=== PATIENT | female | born 1935 | race Caucasian/White ===

== ENCOUNTER 2017-03-03 14:08 | Inpatient (IN) | payer MEDICARE, MEDICAID ==
[~2017-03-03] VITALS: Ht 165.1 cm; Wt 67.1 kg
[2017-03-03 13:00] VITALS: BP 105/59
[~2017-03-03 14:08] MED LIST: ALBU2.5V13 NEB; ALPR0.25 PO; ASPI81TA31 PO; Acetaminophen PO; DULO60CA45 PO; Docusate Sodium PO; GABA600T PO; HYDR-3326 PO; IPRA0.2S6 NEB; LEVO25TA9 PO; MAGN400O4 PO; MONT10TA22 PO; MULT-24 PO; PANT40TA2 PO; ROPI1TAB2 PO
[2017-03-03 14:30] VITALS: BP 123/76
[2017-03-03] MEDS ORDERED: Z GUARD REMEDY PASTE 57 GM TUBE TOP PRN (14:30)
[2017-03-03] MEDS ORDERED: DULO60CA45 PO (15:45)
[2017-03-03] MEDS ORDERED: ALBU2.5V38 NEB (15:45)
[2017-03-03] MEDS ORDERED: MAGN400C PO (15:45)
[2017-03-03] MEDS ORDERED: PRED20TA PO (15:45)
[2017-03-03] MEDS ORDERED: MONT10TA25 PO (15:45)
[2017-03-03] MEDS ORDERED: MULT-1168 PO (15:45)
[2017-03-03] MEDS ORDERED: AZIT250T6 PO (15:45)
[2017-03-03] MEDS ORDERED: ALPR0.255 PO (15:45)
[2017-03-03] MEDS ORDERED: ICOS1CAP PO (15:45)
[2017-03-03] MEDS ORDERED: ESOM40CA PO (15:45)
[2017-03-03] MEDS ORDERED: ASPI-605 PO (15:45)
[2017-03-03] MEDS ORDERED: AMLO5TAB2 PO (15:45)
[2017-03-03] MEDS ORDERED: GABA600T2 PO (15:45)
[2017-03-03] MEDS ORDERED: ENOX40DI SQ (15:45)
[2017-03-03] MEDS ORDERED: ROSU10TA PO (15:46)
[2017-03-03] MEDS ORDERED: ROPI0.5T PO (15:46)
[2017-03-03] MEDS ORDERED: THYR30TA2 PO (15:46)
--- NOTE | 2017-03-03 16:00 | NUR ---
Patient admitted to unit via gurney from ambulance, from [facility]. Report received from EMT personnel, patient in stable condition, no signs of acute distress noted. VS WNL, O2 sat WNL on RA. Belongings verified with patient, no other verbalized needs at this time. Skin clean, dry, and intact, AAOx3, all needs attended to. Safety and fall precautions maintained, call light within reach. Medication reconciliation completed by Isak Fisher NP. Patient reports headache pain 6/10, Tylenol 650mg PO given as per Dr. Pena. Will endorse to older worker specialist.
[2017-03-03] MEDS ORDERED: TIOT4MIS3 IH (16:23)
[2017-03-03] MEDS ORDERED: FLUT1BLS IH (16:23)
[2017-03-03] MEDS ORDERED: OLME20TA15 PO (16:24)
[2017-03-03] MEDS: ACETAMINOPHEN 325 MG TABLET PO PRN (16:53)
[2017-03-03] MEDS ORDERED: Medication Not On Formulary EA (Esomeprazole Mag Trihydrate (Nexium) 40 MG) PO SCH (17:00)
[2017-03-03] MEDS ORDERED: Medication Not On Formulary EA (Icosapent Ethyl (Vascepa) 1 GM) PO SCH (17:00)
[2017-03-03] MEDS ORDERED: ropiniROLE 0.5 MG TABLET PO SCH (17:00)
[2017-03-03] MEDS ORDERED: HOME MED MISCELLANEOUS XX SCH ×2 (17:15→18:00)
[2017-03-03] MEDS: ALPRAZOLAM 0.25 MG TABLET PO SCH (18:15)
[2017-03-03] MEDS: ALBUTEROL SULFATE 2.5 MG/3 ML NEBU NEB SCH (19:59)
[2017-03-03 20:27] VITALS: BP 111/62
[2017-03-03] MEDS: ATORVASTATIN 20 MG TABLET PO SCH (21:00)
[2017-03-03] MEDS ORDERED: AZITHROMYCIN 250 MG TABLET PO SCH (21:15)
[2017-03-03] MEDS: OXYCODONE/APAP 5-325 MG TABLET PO PRN (22:22)
[2017-03-03] MEDS ORDERED: OXYCODONE/APAP 5-325 MG TABLET ONE (22:26)
[2017-03-04] MEDS: ALBUTEROL SULFATE 2.5 MG/3 ML NEBU NEB SCH ×4 (00:03→20:10)
[2017-03-04] MEDS: ALPRAZOLAM 0.25 MG TABLET PO SCH ×4 (00:30→18:01)
[2017-03-04] MEDS ORDERED: ZOLPIDEM 5 MG TABLET ONE (02:51)
[2017-03-04] MEDS: THYROID 60 MG TABLET PO SCH (06:24)
[2017-03-04] MEDS: PANTOPRAZOLE SODIUM 40 MG TABLET.DR PO SCH ×2 (06:24→18:01)
[2017-03-04] MEDS: ACETAMINOPHEN 325 MG TABLET PO PRN ×2 (06:24→20:26)
[2017-03-04] MEDS ORDERED: THYROID PO SCH (07:30)
--- NOTE | 2017-03-04 08:00 | NUR ---
Awake, alert,oriented x 4, on moderate high back rest, not in distress, room air.
[2017-03-04 08:07] VITALS: BP 117/73
[2017-03-04 08:25] LABS: BASOPHILS % (AUTO) 0.1 % (0.0-2.0); EOSINOPHILS % (AUTO) 0.5 % (0.0-7.0); HEMATOCRIT 31.6 % (37-47); HEMOGLOBIN 10.6 G/DL (12.0-16.0); LYMPHOCYTES # (AUTO) 2.3 K/UL (0.8-4.8); LYMPHOCYTES % (AUTO) 25.7 % (20.5-51.5); MEAN CORPUSCULAR HEMOGLOBIN 26.5 UUG (27.0-31.0); MEAN CORPUSCULAR HGB CONC 33 g/dL (32.0-37.0); MEAN CORPUSCULAR VOLUME 79.1 FL (81.0-99.0); MONOCYTES # (AUTO) 0.9 K/UL (0.1-1.30); MONOCYTES % (AUTO) 9.8 % (0.0-11.0); NEUTROPHILS # (AUTO) 5.7 K/UL (1.8-8.9); NEUTROPHILS % (AUTO) 63.9 % (38.5-71.5); PLATELET COUNT (AUTO) 198 K/UL (150-450); RED BLOOD CELL COUNT(AUTO) 3.99 MIL/UL (4.2-5.4); WHITE BLOOD COUNT (AUTO) 8.9 K/UL (4.0-11.2)
[2017-03-04 08:32] LABS: CARBON DIOXIDE 27 mmol/L (21-32); CHLORIDE 106 mmol/L (98-107); CHOLESTEROL 130 mg/dL (<200); CREATININE 0.9 mg/dL (0.6-1.3); GLUCOSE 73 mg/dL (74-106); HDL CHOLESTEROL 44 mg/dL (40-60); MAGNESIUM 1.8 mg/dL (1.8-2.4); PHOSPHOROUS 3.9 mg/dL (2.5-4.9); POTASSIUM 3.9 mmol/L (3.5-5.1); TRIGLYCERIDES 145 MG/DL (30-150); UREA NITROGEN, BLOOD 35 mg/dL (7-18)
[2017-03-04] MEDS ORDERED: Medication Not On Formulary EA (Rosuvastatin Calcium (Crestor) 10 MG) PO SCH (09:00)
[2017-03-04] MEDS ORDERED: PATIENT MAY USE OWN MED- MD OK PO SCH (09:00)
[2017-03-04] MEDS: PATIENT MAY USE OWN MED- MD OK IH SCH ×2 (09:00→09:05)
[2017-03-04] MEDS ORDERED: ENOXAPARIN SODIUM 40 MG/0.4 ML DISP.SYRIN SQ SCH (09:00)
[2017-03-04] MEDS ORDERED: Medication Not On Formulary EA (Olmesartan Medoxomil (Benicar) 20 MG) PO SCH (09:00)
[2017-03-04] MEDS ORDERED: Medication Not On Formulary EA (Mu-Vits-Min Th/Lycopene/Lutein (Centrum Silver Tablet) 1 PO SCH (09:00)
--- NOTE | 2017-03-04 09:00 | NUR ---
PT cindy initiated, request for smoking
[2017-03-04] MEDS: DULOXETINE 60 MG CAPSULE.DR PO SCH (09:05)
[2017-03-04] MEDS: ASPIRIN EC 81 MG TABLET.DR PO SCH (09:05)
[2017-03-04] MEDS: GABAPENTIN 400 MG CAPSULE PO SCH ×3 (09:06→18:01)
[2017-03-04] MEDS: AMLODIPINE 5 MG TABLET PO SCH (09:07)
[2017-03-04] MEDS: predniSONE 20 MG TABLET PO SCH (09:07)
[2017-03-04] MEDS: MAGNESIUM OXIDE 400 MG TABLET PO SCH (09:07)
[2017-03-04] MEDS: MONTELUKAST SODIUM 10 MG TABLET PO SCH (09:08)
[2017-03-04] MEDS: ropiniROLE 1 MG TABLET PO SCH ×2 (09:08→18:01)
[2017-03-04] MEDS: AZITHROMYCIN 250 MG TABLET PO SCH (09:09)
[2017-03-04] MEDS: MULTIVIT, IRON, MIN NO. 8, FA TABLET PO SCH (09:09)
[2017-03-04] MEDS: ENOXAPARIN SODIUM 30 MG/0.3 ML DISP.SYRIN SUBCUT SCH (09:12)
--- NOTE | 2017-03-04 14:11 | NUR ---
Hvac Instructor: SW met with patient at bedside to assess support and provide needs. Pt was admitted for COPD appeared lethargic upon intiial assessment. Pt was unresponsive to questions and appeared to be sleeping. SW attempted to call daughter, Kai [phone] however no answer at this time. SW will continue to follow-up with patient and family to assess needs and provide support.
--- NOTE | 2017-03-04 18:31 | NUR ---
Incontinence care done. Repositioned in bed comfortably
--- NOTE | 2017-03-04 19:45 | NUR ---
patient received resting comfortably in bed, no acute distress noted. Pt requesting respiratory treatment prn, RT notified. Denies any other physical discomfort. Able to make needs known. Bed in low and locked position, call light within reach.
[2017-03-04] MEDS: BENICAR 20 MG PO SCH (20:26)
[2017-03-04 20:47] VITALS: BP 102/55
[2017-03-04] MEDS: ATORVASTATIN 20 MG TABLET PO SCH (21:00)
--- NOTE | 2017-03-04 21:00 | NUR ---
Patient compliant with po medications, except refusing lipitor states "I don't need it", will notify MD. Pt does c/o pain to both arms, given tylenol prn. no acute distress noted. Will monitor for safety.
[2017-03-05] MEDS: ZOLPIDEM 5 MG TABLET PO PRN ×2 (00:06→23:10)
[2017-03-05] MEDS: ALBUTEROL SULFATE 2.5 MG/3 ML NEBU NEB SCH ×4 (00:09→18:49)
[2017-03-05] MEDS: ALPRAZOLAM 0.25 MG TABLET PO SCH ×4 (00:21→17:40)
--- NOTE | 2017-03-05 05:29 | NUR ---
PATIENT SLEPT MOST OF THE NIGHT, NO SOB NO CHEST PAIN, OXYGEN SAT WITHIN THE NORMAL RANGE, CALL LIGHT WITHIN REACH. OXYGEN SAT WNL.
[2017-03-05] MEDS: PANTOPRAZOLE SODIUM 40 MG TABLET.DR PO SCH ×2 (06:20→17:40)
[2017-03-05] MEDS: THYROID 60 MG TABLET PO SCH (06:21)
--- NOTE | 2017-03-05 08:00 | NUR ---
Awake, alert, oriented x 4, on moderate high back rest. Repositioned, breakfast served
[2017-03-05 08:31] VITALS: BP 107/62
[2017-03-05] MEDS: PATIENT MAY USE OWN MED- MD OK IH SCH ×2 (09:00→09:10)
[2017-03-05] MEDS: MAGNESIUM OXIDE 400 MG TABLET PO SCH (09:10)
[2017-03-05] MEDS: DULOXETINE 60 MG CAPSULE.DR PO SCH (09:10)
[2017-03-05] MEDS: GABAPENTIN 400 MG CAPSULE PO SCH ×3 (09:10→17:39)
[2017-03-05] MEDS: ASPIRIN EC 81 MG TABLET.DR PO SCH (09:10)
[2017-03-05] MEDS: predniSONE 20 MG TABLET PO SCH (09:11)
[2017-03-05] MEDS: AMLODIPINE 5 MG TABLET PO SCH (09:11)
[2017-03-05] MEDS: ropiniROLE 1 MG TABLET PO SCH ×2 (09:12→17:40)
[2017-03-05] MEDS: AZITHROMYCIN 250 MG TABLET PO SCH (09:12)
[2017-03-05] MEDS: MULTIVIT, IRON, MIN NO. 8, FA TABLET PO SCH (09:12)
[2017-03-05] MEDS: MONTELUKAST SODIUM 10 MG TABLET PO SCH (09:12)
[2017-03-05] MEDS: ENOXAPARIN SODIUM 30 MG/0.3 ML DISP.SYRIN SUBCUT SCH (09:13)
[2017-03-05] MEDS: ACETAMINOPHEN 325 MG TABLET PO PRN (12:29)
--- NOTE | 2017-03-05 14:48 | NUR ---
Woke up after a nap. Requested for a shower.
[2017-03-05 18:03] VITALS: BP 116/66
--- NOTE | 2017-03-05 18:11 | NUR ---
Refused Xanax due, verbalized feeling relaxed.
--- NOTE | 2017-03-05 19:30 | NUR ---
PT ALERT AND ORIENTED IN BED. NO DISTRESS NOTED. HOB ELEVATED. COMPLIANT WITH NURSING CARE. ALL NEEDS MET. SAFETY MAINTAINED. CALL LIGHT WITHIN REACH.
[2017-03-05 20:37] VITALS: BP_SYST 111; BP_SYST 95; BP_DIAS 57
[2017-03-05] MEDS: ATORVASTATIN 20 MG TABLET PO SCH (21:00)
[2017-03-05] MEDS: BENICAR 20 MG PO SCH (21:18)
[2017-03-06] MEDS: ALPRAZOLAM 0.25 MG TABLET PO SCH ×2 (00:46→06:12)
[2017-03-06] MEDS: ALBUTEROL SULFATE 2.5 MG/3 ML NEBU NEB SCH ×4 (01:51→19:06)
[2017-03-06] MEDS: THYROID 60 MG TABLET PO SCH (06:11)
[2017-03-06] MEDS: ACETAMINOPHEN 325 MG TABLET PO PRN ×2 (06:12→23:45)
[2017-03-06] MEDS: PANTOPRAZOLE SODIUM 40 MG TABLET.DR PO SCH ×2 (06:12→17:01)
--- NOTE | 2017-03-06 07:01 | NUR ---
PT RESTING IN BED. NO DISTRESS NOTED. TYLENOL GIVEN FOR MILD HEADACHE, COMPLIANT WITH NURSING CARE. CLEAN AND DRY. SAFETY MAINTAINED. CALL LIGHT WITHIN REACH.
[2017-03-06 08:00] VITALS: BP 110/57
[2017-03-06] MEDS: PATIENT MAY USE OWN MED- MD OK IH SCH ×2 (08:58→20:40)
[2017-03-06] MEDS: ropiniROLE 1 MG TABLET PO SCH ×2 (08:59→17:01)
[2017-03-06] MEDS: DULOXETINE 60 MG CAPSULE.DR PO SCH (08:59)
[2017-03-06] MEDS: MONTELUKAST SODIUM 10 MG TABLET PO SCH (08:59)
[2017-03-06] MEDS: GABAPENTIN 400 MG CAPSULE PO SCH ×3 (09:00→17:01)
[2017-03-06] MEDS: AZITHROMYCIN 250 MG TABLET PO SCH (09:00)
[2017-03-06] MEDS: MULTIVIT, IRON, MIN NO. 8, FA TABLET PO SCH (09:00)
[2017-03-06] MEDS: MAGNESIUM OXIDE 400 MG TABLET PO SCH (09:00)
[2017-03-06] MEDS: AMLODIPINE 5 MG TABLET PO SCH (09:00)
[2017-03-06] MEDS: ASPIRIN EC 81 MG TABLET.DR PO SCH (09:00)
[2017-03-06] MEDS: predniSONE 20 MG TABLET PO SCH (09:00)
--- NOTE | 2017-03-06 09:00 | NUR ---
PATIENT AWAKE RESTING IN BED. NO S/S OF DISTRESS. NO COMPLAINTS OF DISCOMFORT OR PAIN NOTED. MEDICATIONS TOLERATED WELL. PATIENT REQUESTED TO GO OUT AND SMOKE. INFORMED PATIENT THAT SHE IS BALE TO DO SO ONLY 3X/DAY. OT ACCOMPANIED BY PATIENT OUTSIDE, ENSURED SAFETY.
[2017-03-06] MEDS: ENOXAPARIN SODIUM 30 MG/0.3 ML DISP.SYRIN SUBCUT SCH (09:01)
[2017-03-06] MEDS ORDERED: BISACODYL 5 MG TABLET.DR PO ONE (12:00)
[2017-03-06] MEDS: ALPRAZOLAM 0.25 MG TABLET PO PRN ×2 (12:32→18:15)
--- NOTE | 2017-03-06 16:45 | NUR ---
PATIENT WENT TO SMOKE FOR 3RD TIME. INFORMED PATIENT THAT THIS WILL BE LAST FOR THE DAY. NO COMPLAINTS OF DISCOMFORT OR PAIN AT THIS TIME. TOLERATED THERAPY. ENSURED SAFETY. ATTENDED TO NEEDS PROMPTLY.
--- NOTE | 2017-03-06 19:30 | NUR ---
Received patient resting in bed with no s/s of distress. No compliants of pain at this time. Call light within reach. Will continue to monitor.
[2017-03-06 20:00] VITALS: BP 94/52
[2017-03-06] MEDS: SENNOSIDES 1 TABLET PO SCH (20:34)
[2017-03-06] MEDS: ATORVASTATIN 20 MG TABLET PO SCH (20:34)
[2017-03-06] MEDS: BENICAR 20 MG PO SCH (20:35)
[2017-03-06] MEDS: ZOLPIDEM 5 MG TABLET PO PRN (23:44)
[2017-03-07] MEDS: ALBUTEROL SULFATE 2.5 MG/3 ML NEBU NEB SCH ×4 (00:33→20:10)
[2017-03-07] MEDS: OXYCODONE/APAP 5-325 MG TABLET PO PRN (02:10)
[2017-03-07] MEDS: ALPRAZOLAM 0.25 MG TABLET PO PRN ×3 (02:19→18:40)
[2017-03-07] MEDS: PANTOPRAZOLE SODIUM 40 MG TABLET.DR PO SCH ×2 (06:11→17:11)
[2017-03-07] MEDS: THYROID 60 MG TABLET PO SCH (06:11)
--- NOTE | 2017-03-07 06:41 | NUR ---
Patient went back to sleep after taking morning meds. Respirations even and unlabored. Reported headache to be relieved by pain meds. Ambien and Xanax given per patient's request. VS monitored. Frequent checks done. Call light kept within reach. Needs attended. Endorsed accordingly.
--- NOTE | 2017-03-07 06:45 | NUR ---
Snacks served during the shift as requested by patient. Verbalized satisfaction.
--- NOTE | 2017-03-07 07:30 | NUR ---
Received pt in bed A/O X4, no acute distress noted. Call light within reach.
[2017-03-07 08:00] VITALS: BP 96/48
--- NOTE | 2017-03-07 08:45 | NUR ---
pt with therapy at this time
--- NOTE | 2017-03-07 08:51 | NUR ---
PATIENT HAVING THERAPY AT THE MOMENT. WILL GIVE MEDS AFTER THERAPY. TOLERATED BREAKFAST WELL. NO COMPLAINTS OF PAIN OR DISCOMFORT AT THIS TIME. NO S/S OF DISTRESS.
[2017-03-07] MEDS: AMLODIPINE 5 MG TABLET PO SCH (09:00)
[2017-03-07] MEDS: MONTELUKAST SODIUM 10 MG TABLET PO SCH (10:03)
[2017-03-07] MEDS: MULTIVIT, IRON, MIN NO. 8, FA TABLET PO SCH (10:03)
[2017-03-07] MEDS: DULOXETINE 60 MG CAPSULE.DR PO SCH (10:03)
[2017-03-07] MEDS: ropiniROLE 1 MG TABLET PO SCH ×2 (10:03→17:11)
[2017-03-07] MEDS: GABAPENTIN 400 MG CAPSULE PO SCH ×3 (10:04→17:11)
[2017-03-07] MEDS: ASPIRIN EC 81 MG TABLET.DR PO SCH (10:04)
[2017-03-07] MEDS: MAGNESIUM OXIDE 400 MG TABLET PO SCH (10:04)
[2017-03-07] MEDS: predniSONE 20 MG TABLET PO SCH (10:04)
[2017-03-07] MEDS: PATIENT MAY USE OWN MED- MD OK IH SCH ×2 (10:05→21:47)
[2017-03-07] MEDS: ENOXAPARIN SODIUM 30 MG/0.3 ML DISP.SYRIN SUBCUT SCH (10:19)
--- NOTE | 2017-03-07 11:16 | NUR ---
BP OF 90/47. IL-81. PATIENT VERBALIZED THAT SHE WAS TIRED FROM THERAPY. INFORMED PIETROER/ OPERATIONS ADMINISTRATIVE ASSISTANT AND SAID WILL CHECK WITH SOME LABS. NO NEW ORDERS AT THIS TIME.
[2017-03-07] MEDS: ACETAMINOPHEN 325 MG TABLET PO PRN (11:33)
--- NOTE | 2017-03-07 11:33 | NUR ---
Pain Pt c/o of headache pain scale 7/10, pt requesting tylenol 650mg PO. Med given as order, Will con't to monitor.
--- NOTE | 2017-03-07 12:36 | NUR ---
Anxiety Pt c/o of feeling anxious. Xanax 0.25 mg PO given as requested. B/P checked reading of 125/62 HR 83. Will monitor effectiveness.
--- NOTE | 2017-03-07 18:41 | NUR ---
Pt remains in bed, alert/oriented pt c/o of anxiety Xanax 0.25mg PO given as requested. No distress noted. Pt taken out to smoke 3x today. smoking cessation instructions provided.
--- NOTE | 2017-03-07 19:30 | NUR ---
Received patient resting in bed with no s/s of distress. No complaints of pain at this time. Asked to be taken out to smoke. Reminded that she had already done so four times during the day. Offered some snacks. Encouraged to watch TV for recreation. Call light within reach. Will continue to monitor.
[2017-03-07] MEDS: ATORVASTATIN 20 MG TABLET PO SCH ×2 (21:00→21:47)
[2017-03-07 21:33] VITALS: BP 111/52
[2017-03-07 21:36] VITALS: BP 145/106
[2017-03-07] MEDS: SENNOSIDES 1 TABLET PO SCH (21:47)
[2017-03-07] MEDS: BENICAR 20 MG PO SCH (21:49)
[2017-03-07] MEDS: ZOLPIDEM 5 MG TABLET PO PRN (22:51)
[2017-03-08] MEDS: ALPRAZOLAM 0.25 MG TABLET PO PRN ×3 (00:11→13:28)
[2017-03-08] MEDS: ALBUTEROL SULFATE 2.5 MG/3 ML NEBU NEB SCH ×4 (00:58→19:41)
[2017-03-08] MEDS: OXYCODONE/APAP 5-325 MG TABLET PO PRN (03:36)
[2017-03-08] MEDS: PANTOPRAZOLE SODIUM 40 MG TABLET.DR PO SCH ×2 (06:06→17:18)
[2017-03-08] MEDS: THYROID 60 MG TABLET PO SCH (06:07)
--- NOTE | 2017-03-08 07:35 | NUR ---
Patient sleeping after taking AM meds. No s/s of distress. Due meds and PRN meds given. Refused HS dose of Lipitor. Verbalized some relief of pain. Comfort measures done. Frequent checks done. Call light kept within reach. Endorsed accordingly.
[2017-03-08 08:00] VITALS: BP 101/52
[2017-03-08] MEDS: GABAPENTIN 400 MG CAPSULE PO SCH ×3 (08:50→17:18)
[2017-03-08] MEDS: ropiniROLE 1 MG TABLET PO SCH ×2 (08:50→17:18)
[2017-03-08] MEDS: MULTIVIT, IRON, MIN NO. 8, FA TABLET PO SCH (08:50)
[2017-03-08] MEDS: ASPIRIN EC 81 MG TABLET.DR PO SCH (08:50)
[2017-03-08] MEDS: DULOXETINE 60 MG CAPSULE.DR PO SCH (08:51)
[2017-03-08] MEDS: predniSONE 20 MG TABLET PO SCH (08:51)
[2017-03-08] MEDS: MAGNESIUM OXIDE 400 MG TABLET PO SCH (08:51)
[2017-03-08] MEDS: ENOXAPARIN SODIUM 30 MG/0.3 ML DISP.SYRIN SUBCUT SCH (08:56)
[2017-03-08] MEDS: PATIENT MAY USE OWN MED- MD OK IH SCH ×2 (08:58→21:31)
[2017-03-08] MEDS: AMLODIPINE 5 MG TABLET PO SCH (09:00)
[2017-03-08] MEDS ORDERED: ONDANSETRON HCL 4 MG TABLET PO PRN (10:45)
[2017-03-08 11:42] LABS: BASOPHILS # (AUTO) 0.3 K/uL (0.0-8.0); BASOPHILS % (AUTO) 1.7 % (0.0-2.0); EOSINOPHILS # (AUTO) 0.2 K/uL (0.0-0.7); EOSINOPHILS % (AUTO) 1.1 % (0.0-7.0); HEMATOCRIT 35.7 % (37-47); LYMPHOCYTES # (AUTO) 2.6 K/UL (0.8-4.8); MEAN CORPUSCULAR HGB CONC 34 g/dL (32.0-37.0); MEAN CORPUSCULAR VOLUME 80.5 FL (81.0-99.0); MONOCYTES % (AUTO) 13.5 % (0.0-11.0); NEUTROPHILS % (AUTO) 66.7 % (38.5-71.5); PLATELET COUNT (AUTO) 240 K/UL (150-450); RED BLOOD CELL COUNT(AUTO) 4.43 MIL/UL (4.2-5.4); WHITE BLOOD COUNT (AUTO) 15.1 K/UL (4.0-11.2)
[2017-03-08 11:57] LABS: CARBON DIOXIDE 28 mmol/L (21-32); CHLORIDE 104 mmol/L (98-107); CREATININE 0.9 mg/dL (0.6-1.3); GLUCOSE 90 mg/dL (74-106); UREA NITROGEN, BLOOD 27 mg/dL (7-18)
[2017-03-08 12:03] LABS: ALANINE AMINOTRANSFERASE 42 U/L (14-59); ALKALINE PHOSPHATASE 56 U/L (50-136); ASPARTATE AMINOTRANSFERASE 15 U/L (15-37); BILIRUBIN,TOTAL 0.4 mg/dL (0.2-1.0); MAGNESIUM 1.9 mg/dL (1.8-2.4); TOTAL PROTEIN, SERUM 7.3 g/dL (6.4-8.2)
--- NOTE | 2017-03-08 18:23 | NUR ---
senior quality control inspector gave orders such as ekg and cbc. no pertinent results noted. continued to monitor pt for complications after episode of vomiting. vital signs remained stable. pt participated in adl such as bathing and grooming. pt continued to ask for xanax and cigarette session. pt notified of the risks of smoking. pt refused. pt was given smoking cession. no signs of acute distress after vomiting. ishan continue to provide comfort measures and medication regimen.
--- NOTE | 2017-03-08 19:30 | NUR ---
RECEIVED PATIENT AWAKE, ALERT AND ORIENTED X4 WITH ANXIETY ISSUES AROUND NEED TO SMOKE. SMOKING CESSATION INFO GIVEN TO PATIENT.DR HALE HERE TO EVALUATE PATIENT. ORDERS RECEIVED. CALL LIGHT WITHIN REACH AAT. BED ALARM ON. INSTRUCTED PATIENT NOT TO GET OOB WITHOUT FIRST CALLING NURSE. PATIENT VERBALIZES UNDERSTANDING.
[2017-03-08] MEDS: FEXOFENADINE HCL 60 MG TABLET PO SCH (19:45)
[2017-03-08] MEDS ORDERED: CLONAZEPAM 0.5 MG TABLET PO PRN (19:45)
[2017-03-08] MEDS: MONTELUKAST SODIUM 10 MG TABLET PO SCH (20:40)
[2017-03-08] MEDS: ATORVASTATIN 20 MG TABLET PO SCH (20:40)
[2017-03-08] MEDS: BENICAR 20 MG PO SCH (20:42)
[2017-03-08] MEDS: SENNOSIDES 1 TABLET PO SCH (20:44)
[2017-03-08 22:15] VITALS: BP 95/43
[2017-03-09] VITALS (10 sets, daily range): BP systolic 81–114; BP diastolic 41–69
[2017-03-09] MEDS: ALBUTEROL SULFATE 2.5 MG/3 ML NEBU NEB SCH ×4 (01:30→20:05)
--- NOTE | 2017-03-09 01:30 | NUR ---
PATIENT CALLED NURSE TO SAY SHE DIDN'T FEEL GOOD. HYPOTENSIVE WITH HR WNL. SKIN WARM AND DRY. AWAKE, ALERT AND ORIENTED X4. SPEECH CLEAR. SYMMETRICAL EXTREMITIES AND NO FACIAL DROOP OBSERVED. PLACED PATIENT WITH HOB FLAT AND WITH ELEVATION OF LEGS ON [address] SHAH PAGED AND NOTIFIED OF HYPOTENSION, NEW ORDER OF CLONAZEPAM LAST NIGHT AND THAT HS BENICAR WAS GIVEN. ORDERS RECEIVED. CALL LIGHT WITHIN REACH AAT
[2017-03-09] MEDS ORDERED: IV NS 1000 ML 1,000 ML IV ONE ×2 (01:45→03:00)
--- NOTE | 2017-03-09 02:00 | NUR ---
NEW IV STARTED IN RIGHT WRIST WITH 22 G NEEDLE. 2 LITER NORMAL SALINE BOLUS INITIATED ORDERED. O2 SATS KEPT BETWEEN 88-92% ON 1 LPM/NASAL CANNULA.NO RESPIRATORY DISTRESS NOTED. RECEIVED HHN TREATMENT AT 0130 BY RT WITHOUT INCIDENT.
--- NOTE | 2017-03-09 03:30 | NUR ---
FEELING BETTER AT THIS TIME. RESTING COMFORTABLY WITHOUT C/O DIZZINESS, PAIN, OR ANXIETY.NO RESPIRATORY DISTRESS NOTED. SATS ARE 93 % ON O2 AT 1 LPM/NASAL CANNULA. BPS IMPROVED TO 90/49 WITH HR OF 70/MIN. SLEEPING INTERMITTENTLY ON AND OFF. APPEARS IN NAD.
--- NOTE | 2017-03-09 04:20 | NUR ---
2 LITER NORMAL SALINE BOLUS COMPLETED WITHOUT INCIDENT. VITALS IMPROVED AT THIS TIME. BPS 114. PATIENT FEELING BETTER. LUNGS ARE CLEAR BY AUSCULTATION BILATERALLY. SATS MAINTAINED OVER 92% ON 1 LPM/NASAL CANNULA. WITHOUT RESPIRATORY DISTRESS NOTED AT THIS TIME. HOB ELEVATED TO 40 DEGREES FOR PATIENT COMFORT. TAKING HOT TEA WITHOUT PROBLEMS. IV SITE CONVERTED TO SALINE LOCK S/P BOLUS INFUSION
--- NOTE | 2017-03-09 05:30 | NUR ---
PATIENT CALLED TO C/O DIZZINESS. VITALS ARE STABLE AT THIS TIME. BPS IS 108. ENC TO DRINK TEA FOR NOW.
[2017-03-09] MEDS: ACETAMINOPHEN 325 MG TABLET PO PRN ×2 (05:58→10:34)
--- NOTE | 2017-03-09 06:00 | NUR ---
COMFORTABLE AT THIS TIME EXCEPT WITH C/O SOME DIZZINESS AND SLIGHT HEADACHE.TYLENOL GIVEN FOR RELIEF.SALINE LOCK FLUSHED WITH NORMAL SALINE TO MAINTAIN PATENCY. APPEARS IN NAD. CALL LIGHT WITHIN REACH
[2017-03-09] MEDS: PANTOPRAZOLE SODIUM 40 MG TABLET.DR PO SCH ×2 (06:01→17:49)
[2017-03-09] MEDS: THYROID 60 MG TABLET PO SCH (06:01)
--- NOTE | 2017-03-09 08:30 | NUR ---
pt refused Norvasc. pt states that her blood pressure is too low. told pt about risks of not medicating. pt refused will continue to monitor for distress.
[2017-03-09] MEDS: FEXOFENADINE HCL 60 MG TABLET PO SCH (09:00)
[2017-03-09] MEDS: AMLODIPINE 5 MG TABLET PO SCH (09:00)
[2017-03-09] MEDS: DULOXETINE 60 MG CAPSULE.DR PO SCH (09:22)
[2017-03-09] MEDS: ropiniROLE 1 MG TABLET PO SCH ×2 (09:22→17:49)
[2017-03-09] MEDS: predniSONE 20 MG TABLET PO SCH (09:23)
[2017-03-09] MEDS: ASPIRIN EC 81 MG TABLET.DR PO SCH (09:23)
[2017-03-09] MEDS: GABAPENTIN 400 MG CAPSULE PO SCH ×3 (09:23→17:49)
[2017-03-09] MEDS: MULTIVIT, IRON, MIN NO. 8, FA TABLET PO SCH (09:23)
[2017-03-09] MEDS: MAGNESIUM OXIDE 400 MG TABLET PO SCH (09:24)
[2017-03-09] MEDS: ENOXAPARIN SODIUM 30 MG/0.3 ML DISP.SYRIN SUBCUT SCH (09:25)
[2017-03-09] MEDS: PATIENT MAY USE OWN MED- MD OK IH SCH ×2 (09:37→21:11)
--- NOTE | 2017-03-09 13:10 | NUR ---
pt complaints that she wants her xanax but Dr. Melissa discontinued the med and replaced it with Klonopin. Md also allowed pt to smoke three times a day. pt notified of the risks of smoking. pt still refused smoking cessation. ordered nicotine patch. pt refused and wanted xanax. will contact . for clarification.
--- NOTE | 2017-03-09 13:17 | NUR ---
dr hooper contacted. Dr. Hooper instructed to talk to angelica if he feels strongly about discontinuing xanax and smoking.
--- NOTE | 2017-03-09 14:36 | NUR ---
dr dominguez approved of continuing xanax as prescribed.
[2017-03-09] MEDS: ALPRAZOLAM 0.25 MG TABLET PO PRN (16:46)
--- NOTE | 2017-03-09 16:57 | NUR ---
IDT MEETING 03/09/17
[2017-03-09] MEDS ORDERED: ATORVASTATIN 20 MG TABLET PO SCH (21:00)
[2017-03-09] MEDS: ATORVASTATIN 10 MG TABLET PO SCH (21:09)
[2017-03-09] MEDS: MONTELUKAST SODIUM 10 MG TABLET PO SCH (21:09)
[2017-03-09] MEDS: BENICAR 20 MG PO SCH (21:10)
[2017-03-09] MEDS: SENNOSIDES 1 TABLET PO SCH (21:10)
[2017-03-09] MEDS: ZOLPIDEM 5 MG TABLET PO PRN (23:58)
[2017-03-10] MEDS: ALBUTEROL SULFATE 2.5 MG/3 ML NEBU NEB SCH ×4 (01:44→18:58)
[2017-03-10] MEDS: ALPRAZOLAM 0.25 MG TABLET PO PRN ×4 (01:50→23:02)
[2017-03-10] MEDS: THYROID 60 MG TABLET PO SCH (06:46)
[2017-03-10] MEDS: PANTOPRAZOLE SODIUM 40 MG TABLET.DR PO SCH ×2 (06:46→16:47)
--- NOTE | 2017-03-10 06:50 | NUR ---
Patient alert and oriented and verbally able to let needs known. Slept intermittently throughout the night. Showed no signs of pain or discomfort. Maintained clean and dry throughout the night. Call light within reach, all needs attended to.
[2017-03-10] MEDS: predniSONE 10 MG TABLET PO SCH (08:20)
[2017-03-10] MEDS: PATIENT MAY USE OWN MED- MD OK IH SCH ×2 (08:20→20:53)
[2017-03-10] MEDS: GABAPENTIN 400 MG CAPSULE PO SCH ×3 (08:21→18:07)
[2017-03-10] MEDS: DULOXETINE 60 MG CAPSULE.DR PO SCH (08:21)
[2017-03-10] MEDS: ropiniROLE 1 MG TABLET PO SCH ×2 (08:21→16:48)
[2017-03-10] MEDS: MAGNESIUM OXIDE 400 MG TABLET PO SCH (08:22)
[2017-03-10] MEDS: ASPIRIN EC 81 MG TABLET.DR PO SCH (08:22)
[2017-03-10 08:23] VITALS: BP 129/58
[2017-03-10] MEDS: ENOXAPARIN SODIUM 30 MG/0.3 ML DISP.SYRIN SUBCUT SCH (08:23)
[2017-03-10] MEDS: NICOTINE 14 MG/24HR PATCH TD SCH (08:25)
[2017-03-10] MEDS: MULTIVIT, IRON, MIN NO. 8, FA TABLET PO SCH (08:26)
[2017-03-10] MEDS: FEXOFENADINE HCL 60 MG TABLET PO SCH (08:37)
--- NOTE | 2017-03-10 08:45 | NUR ---
RECEIVED PATIENT AWAKE IN BED, EATING BREAKFAST. ALERT AND ORIENTED X4. NO S/S OF DISTRESS NO COMPLAINTS OF PAIN AT THIS TIME. ASKED TO HAVE A CIGARETTE. ACCOMPANIED BY GLASS FURNACE TENDER OUTSIDE.
[2017-03-10] MEDS ORDERED: predniSONE 20 MG TABLET PO SCH (09:00)
[2017-03-10 11:16] LABS: *BILIRUBIN,URIN NEGATIVE (NEGATIVE); *BLOOD, URINE NEGATIVE (NEGATIVE); *CLARITY,URINE SLIGHTLY CLOUDY (CLEAR); *COLOR,URINE YELLOW (YELLOW); *KETONES,URINE NEGATIVE (NEGATIVE); *PROTEIN,URINE NEGATIVE (NEGATIVE); *UROBILINOGEN,URINE 0.2 E.U./dl (NORMAL); LEUKOCYTE ESTERASE ,URINE 1+ (NEGATIVE); NITRITE, URINE NEGATIVE (NEGATIVE); UGLUCOSE NEGATIVE (NEGATIVE)
[2017-03-10 11:32] LABS: BACTERIA,URINE MANY /HPF (NONE SEEN); RBC,URINE 0-3 /HPF (0-3); SQUAMOUS EPITHELIAL CELL,UR FEW /HPF (NONE SEEN); WBC,URINE 20-50 /HPF (0-3)
--- NOTE | 2017-03-10 12:00 | NUR ---
URINALYSIS DONE SENT TO LAB.
--- NOTE | 2017-03-10 13:00 | NUR ---
INFORMED DR. TORRES OF URINALYSIS RESULT. ORDERED BACTRIM DS ONE TABLET BID. ENCOURAGED PATIENT TO INCREASE FLUID INTAKE AND TAKE CRANBERRY JUICE.
[2017-03-10] MEDS: SULFAMETH/TRIMETH 800/160 MG TABLET PO SCH ×2 (16:48→20:51)
[2017-03-10] MEDS ORDERED: BISACODYL 5 MG TABLET.DR PO PRN (19:30)
[2017-03-10] MEDS: SENNOSIDES 1 TABLET PO SCH (20:52)
[2017-03-10] MEDS: ATORVASTATIN 10 MG TABLET PO SCH (20:52)
[2017-03-10] MEDS: MONTELUKAST SODIUM 10 MG TABLET PO SCH (20:52)
[2017-03-10] MEDS: BENICAR 20 MG PO SCH (20:57)
[2017-03-10 21:44] VITALS: BP 95/53
[2017-03-11] MEDS: ALBUTEROL SULFATE 2.5 MG/3 ML NEBU NEB SCH ×4 (01:30→20:05)
--- NOTE | 2017-03-11 01:54 | NUR ---
Pt asleep. No sob noted. HHN tx not given. Charge nurse aware.
[2017-03-11] MEDS: ALPRAZOLAM 0.25 MG TABLET PO PRN ×3 (06:00→18:23)
[2017-03-11] MEDS: PANTOPRAZOLE SODIUM 40 MG TABLET.DR PO SCH ×2 (06:00→17:00)
[2017-03-11] MEDS: THYROID 60 MG TABLET PO SCH (06:00)
--- NOTE | 2017-03-11 06:03 | NUR ---
Patient slept intermittently throughout the night, showed no signs and symptoms of pain or discomfort, no signs of respiratory distress. Maintained clean and dry, call light within reach, all needs attended.
[2017-03-11 07:41] LABS: BASOPHILS % (AUTO) 0.1 % (0.0-2.0); EOSINOPHILS # (AUTO) 0.2 K/uL (0.0-0.7); EOSINOPHILS % (AUTO) 1.6 % (0.0-7.0); HEMATOCRIT 32.3 % (37-47); HEMOGLOBIN 10.8 G/DL (12.0-16.0); LYMPHOCYTES # (AUTO) 2.2 K/UL (0.8-4.8); MEAN CORPUSCULAR HEMOGLOBIN 26.8 UUG (27.0-31.0); MEAN CORPUSCULAR HGB CONC 34 g/dL (32.0-37.0); MEAN CORPUSCULAR VOLUME 79.9 FL (81.0-99.0); MONOCYTES # (AUTO) 0.8 K/UL (0.1-1.30); MONOCYTES % (AUTO) 7.4 % (0.0-11.0); NEUTROPHILS # (AUTO) 7.3 K/UL (1.8-8.9); NEUTROPHILS % (AUTO) 69.9 % (38.5-71.5); PLATELET COUNT (AUTO) 240 K/UL (150-450); RED BLOOD CELL COUNT(AUTO) 4.04 MIL/UL (4.2-5.4)
[2017-03-11 07:44] LABS: WHITE BLOOD COUNT (AUTO) 10.5 K/UL (4.0-11.2)
[2017-03-11 08:05] LABS: CARBON DIOXIDE 26 mmol/L (21-32); CHLORIDE 105 mmol/L (98-107); GLUCOSE 79 mg/dL (74-106); MAGNESIUM 1.9 mg/dL (1.8-2.4); PHOSPHOROUS 3.9 mg/dL (2.5-4.9); POTASSIUM 4.2 mmol/L (3.5-5.1); UREA NITROGEN, BLOOD 17 mg/dL (7-18)
[2017-03-11] MEDS: FEXOFENADINE HCL 60 MG TABLET PO SCH (08:59)
[2017-03-11] MEDS: ASPIRIN EC 81 MG TABLET.DR PO SCH (09:00)
[2017-03-11] MEDS: NICOTINE 14 MG/24HR PATCH TD SCH (09:00)
[2017-03-11] MEDS: ropiniROLE 1 MG TABLET PO SCH ×2 (09:00→17:00)
[2017-03-11] MEDS: GABAPENTIN 400 MG CAPSULE PO SCH ×3 (09:01→17:00)
[2017-03-11] MEDS: MULTIVIT, IRON, MIN NO. 8, FA TABLET PO SCH (09:01)
[2017-03-11] MEDS: SULFAMETH/TRIMETH 800/160 MG TABLET PO SCH ×2 (09:01→21:18)
[2017-03-11] MEDS: DULOXETINE 60 MG CAPSULE.DR PO SCH (09:01)
[2017-03-11] MEDS: predniSONE 10 MG TABLET PO SCH (09:01)
[2017-03-11] MEDS: MAGNESIUM OXIDE 400 MG TABLET PO SCH (09:02)
[2017-03-11] MEDS: ENOXAPARIN SODIUM 30 MG/0.3 ML DISP.SYRIN SUBCUT SCH (09:02)
[2017-03-11] MEDS: PATIENT MAY USE OWN MED- MD OK IH SCH ×2 (09:04→21:17)
[2017-03-11] MEDS: ACETAMINOPHEN 325 MG TABLET PO PRN (12:11)
--- NOTE | 2017-03-11 19:30 | NUR ---
Patient in bed, no s/s of distress. Respirations even and unlabored. Call light within reach. Will continue to monitor.
[2017-03-11] MEDS ORDERED: diphenhydrAMINE/ZINC ACET CREAM 28 GM TUBE TOP PRN (20:30)
[2017-03-11] MEDS: SENNOSIDES 1 TABLET PO SCH (21:17)
[2017-03-11] MEDS: MONTELUKAST SODIUM 10 MG TABLET PO SCH (21:17)
[2017-03-11] MEDS: ATORVASTATIN 10 MG TABLET PO SCH (21:18)
[2017-03-11] MEDS: BENICAR 20 MG PO SCH (21:19)
[2017-03-11] MEDS: DOXEPIN 10 MG CAPSULE PO SCH (21:20)
[2017-03-11 21:44] VITALS: BP 96/52
[2017-03-12] MEDS: ALPRAZOLAM 0.25 MG TABLET PO PRN ×4 (00:29→22:28)
[2017-03-12] MEDS: ALBUTEROL SULFATE 2.5 MG/3 ML NEBU NEB SCH ×4 (01:00→19:47)
[2017-03-12] MEDS: THYROID 60 MG TABLET PO SCH (06:46)
[2017-03-12] MEDS: PANTOPRAZOLE SODIUM 40 MG TABLET.DR PO SCH ×2 (06:47→17:31)
--- NOTE | 2017-03-12 07:06 | NUR ---
Patient went back to sleep after taking AM meds. No s/s of distress. Due meds and PRN meds for pain and anxiety given. Verbalized some relief of pain. Comfort measures done. Frequent checks done. Call light kept within reach. Needs attended. Endorsed accordingly.
[2017-03-12 08:00] VITALS: BP 116/59
--- NOTE | 2017-03-12 08:00 | NUR ---
Patient was received awake alert sitting up in bed. She is on room air. Denies any pain . Asking to go out for a smoke , stated she has been smoking for 55 years and do not plan to stop. Needs construction management assistant with ADL's. Will continue to monitor the patient and address any needs she may have today.
[2017-03-12] MEDS: FEXOFENADINE HCL 60 MG TABLET PO SCH (08:48)
[2017-03-12] MEDS: MULTIVIT, IRON, MIN NO. 8, FA TABLET PO SCH (08:48)
[2017-03-12] MEDS: MAGNESIUM OXIDE 400 MG TABLET PO SCH (08:48)
[2017-03-12] MEDS: DULOXETINE 60 MG CAPSULE.DR PO SCH (08:48)
[2017-03-12] MEDS: GABAPENTIN 400 MG CAPSULE PO SCH ×3 (08:48→17:31)
[2017-03-12] MEDS: ASPIRIN EC 81 MG TABLET.DR PO SCH (08:48)
[2017-03-12] MEDS: predniSONE 10 MG TABLET PO SCH (08:48)
[2017-03-12] MEDS: NICOTINE 14 MG/24HR PATCH TD SCH (08:51)
[2017-03-12] MEDS: ENOXAPARIN SODIUM 30 MG/0.3 ML DISP.SYRIN SUBCUT SCH (08:54)
--- NOTE | 2017-03-12 09:00 | NUR ---
Patient was informed at 0800 that as the time permits we can take her out to smoke . She was taken out at this time to smoke
[2017-03-12] MEDS: BENICAR 20 MG PO SCH (09:02)
[2017-03-12] MEDS: SULFAMETH/TRIMETH 800/160 MG TABLET PO SCH ×2 (09:02→20:47)
[2017-03-12] MEDS: ropiniROLE 1 MG TABLET PO SCH ×2 (09:02→17:31)
[2017-03-12] MEDS: ACETAMINOPHEN 325 MG TABLET PO PRN (09:03)
[2017-03-12] MEDS: PATIENT MAY USE OWN MED- MD OK IH SCH ×2 (09:15→20:50)
--- NOTE | 2017-03-12 09:20 | NUR ---
C/O headache and hands itching. Assessed the patient hands. Hand Cream was applied. Tylenol was given for headache
--- NOTE | 2017-03-12 10:20 | NUR ---
Patient states that her headache is much better.
--- NOTE | 2017-03-12 15:07 | NUR ---
Was called to room by PT. He stated the patient BP was 78/40 patient c.o being dizzy. Went into the patient room and took the BP myself. Patient blood pressure was 98/53, HR 85 and pox is [address] Melissa is on the phone at this time and made aware. Also informed him patient is refusing to have PT today.
[2017-03-12] MEDS: SENNOSIDES 1 TABLET PO SCH (20:46)
[2017-03-12] MEDS: MONTELUKAST SODIUM 10 MG TABLET PO SCH (20:47)
[2017-03-12] MEDS: ATORVASTATIN 10 MG TABLET PO SCH (20:47)
[2017-03-12] MEDS: DOXEPIN 10 MG CAPSULE PO SCH (20:49)
[2017-03-12 20:54] VITALS: BP 83/46
[2017-03-12 22:23] VITALS: BP 102/52
[2017-03-13] MEDS: ALBUTEROL SULFATE 2.5 MG/3 ML NEBU NEB SCH ×4 (00:30→19:34)
[2017-03-13] MEDS: ALPRAZOLAM 0.25 MG TABLET PO PRN ×2 (04:56→12:15)
[2017-03-13] MEDS: PANTOPRAZOLE SODIUM 40 MG TABLET.DR PO SCH ×2 (06:53→16:07)
[2017-03-13] MEDS: THYROID 60 MG TABLET PO SCH (06:53)
--- NOTE | 2017-03-13 06:56 | NUR ---
Patient alert and oriented and verbally able to let needs known. Slept intermittently throughout the night. Had no complains of pain or discomfort, showed no signs of respiratory distress. Maintained clean and dry throughout the night, call light within reach.
--- NOTE | 2017-03-13 08:00 | NUR ---
RECEIVED PATIENT AWAKE IN WHEEL CHAIR. EATING BREAKFAST. ALERT AND ORIENTED. NO COMPLAINTS OF PAIN. NO S/S OF DISTRESS. PATIENT ASKED TO SMOKE OUTSIDE ACCOMPANIED BY MASSAGE THERAPY INSTRUCTOR.
[2017-03-13] MEDS: predniSONE 10 MG TABLET PO SCH (08:18)
[2017-03-13] MEDS: SULFAMETH/TRIMETH 800/160 MG TABLET PO SCH ×2 (08:19→21:46)
[2017-03-13] MEDS: DULOXETINE 60 MG CAPSULE.DR PO SCH (08:19)
[2017-03-13] MEDS: FEXOFENADINE HCL 60 MG TABLET PO SCH (08:19)
[2017-03-13] MEDS: PATIENT MAY USE OWN MED- MD OK IH SCH ×2 (08:19→21:47)
[2017-03-13] MEDS: MAGNESIUM OXIDE 400 MG TABLET PO SCH (08:19)
[2017-03-13] MEDS: GABAPENTIN 400 MG CAPSULE PO SCH ×3 (08:20→16:57)
[2017-03-13] MEDS: ropiniROLE 1 MG TABLET PO SCH ×2 (08:20→16:06)
[2017-03-13] MEDS: MULTIVIT, IRON, MIN NO. 8, FA TABLET PO SCH (08:20)
[2017-03-13] MEDS: ASPIRIN EC 81 MG TABLET.DR PO SCH (08:20)
[2017-03-13] MEDS: ENOXAPARIN SODIUM 30 MG/0.3 ML DISP.SYRIN SUBCUT SCH (08:24)
[2017-03-13] MEDS: NICOTINE 14 MG/24HR PATCH TD SCH (08:25)
[2017-03-13 08:30] VITALS: BP 102/54
--- NOTE | 2017-03-13 09:45 | NUR ---
PATIENT CAME BACK FROM THERAPY. COMPLAINED OF CHEST PAINS RADIATING TO BACK AND LOWER NECK. O2 SAT AT 93%, TN-83, BP- 88/37. PUT PATIENT ON O2 AT [address] TORRES. ECG, TROPONIN AND CHEST X RAY ORDERED. WILL CONTINUE TO MONITOR.
--- NOTE | 2017-03-13 12:00 | NUR ---
ECG, CHEST XRAY AND TROPONIN DONE. RESULTS SEEN BY DR. TORRES. NO NEW ORDERS AT THIS TIME. PATIENT CLAIMS THAT SHE DOES NOT FEEL CHEST PAINS ANYMORE AND WOULD WANT TO SMOKE. EXPLAINED PATIENT ABOUT EFFECTS AND SAID SHE WILL JUST SMOKE LATER.
--- NOTE | 2017-03-13 15:45 | NUR ---
BP OF 95/37. PATIENT COMPLAINED OF DIZZINESS. INFORMED DR. TORRES. FLORINEF 0.1 MG ORDERED AND STARTED.
[2017-03-13] MEDS: FLUDROCORTISONE ACETATE 0.1 MG TABLET PO SCH (16:06)
[2017-03-13] MEDS: BENICAR 20 MG PO SCH (21:00)
[2017-03-13] MEDS: SENNOSIDES 1 TABLET PO SCH (21:46)
[2017-03-13] MEDS: MONTELUKAST SODIUM 10 MG TABLET PO SCH (21:46)
[2017-03-13] MEDS: ATORVASTATIN 10 MG TABLET PO SCH (21:46)
[2017-03-13] MEDS: DOXEPIN 10 MG CAPSULE PO SCH (21:47)
--- NOTE | 2017-03-13 21:56 | NUR ---
Benicar medication held due to hypotension
[2017-03-13 21:57] VITALS: BP 84/39
[2017-03-14] MEDS: ALBUTEROL SULFATE 2.5 MG/3 ML NEBU NEB SCH ×3 (00:31→13:42)
--- NOTE | 2017-03-14 02:25 | NUR ---
Seen by pharmacist. Instructed to take medications as prescribed. Home medication prescriptions given to patient. Patient discharged in stable condition via wheelchair, accompanied by . Addendum: 03/14/17 at 1519 by DEREK GUTIERREZ RN Time of documentation supposed to be at 14:25
[2017-03-14] MEDS: THYROID 60 MG TABLET PO SCH (06:45)
[2017-03-14] MEDS: PANTOPRAZOLE SODIUM 40 MG TABLET.DR PO SCH (06:45)
--- NOTE | 2017-03-14 06:49 | NUR ---
Patient slept intermittently throughout the night, showed no signs of pain or discomfort. No signs of respiratory distress. Patient alert and oriented and verbally able to let needs known. Call light within reach, all needs attended to.
[2017-03-14] MEDS: PATIENT MAY USE OWN MED- MD OK IH SCH (08:07)
[2017-03-14] MEDS: predniSONE 10 MG TABLET PO SCH (08:07)
[2017-03-14] MEDS: ASPIRIN EC 81 MG TABLET.DR PO SCH (08:08)
[2017-03-14] MEDS: GABAPENTIN 400 MG CAPSULE PO SCH ×2 (08:08→12:51)
[2017-03-14] MEDS: ropiniROLE 1 MG TABLET PO SCH (08:08)
[2017-03-14] MEDS: FEXOFENADINE HCL 60 MG TABLET PO SCH (08:08)
[2017-03-14] MEDS: FLUDROCORTISONE ACETATE 0.1 MG TABLET PO SCH (08:08)
[2017-03-14] MEDS: DULOXETINE 60 MG CAPSULE.DR PO SCH (08:08)
[2017-03-14] MEDS: SULFAMETH/TRIMETH 800/160 MG TABLET PO SCH (08:08)
[2017-03-14] MEDS: MULTIVIT, IRON, MIN NO. 8, FA TABLET PO SCH (08:08)
[2017-03-14] MEDS: MAGNESIUM OXIDE 400 MG TABLET PO SCH (08:08)
[2017-03-14] MEDS: ENOXAPARIN SODIUM 30 MG/0.3 ML DISP.SYRIN SUBCUT SCH (08:09)
[2017-03-14 08:25] VITALS: BP 110/56
[2017-03-14] MEDS: NICOTINE 14 MG/24HR PATCH TD SCH (08:40)
--- NOTE | 2017-03-14 09:18 | NUR ---
Received patient awake in bed. No s/s of distress. No complaints of pain or discomfort. Tolerated breakfast well. O2 sat WNL at room air.
--- NOTE | 2017-03-14 12:00 | NUR ---
Patient aware of discharge and says will pick her up in the afternoon. Patient education on smoking cessation, COPD and DVT done. Informed patient to schedule appointment with PCP.
--- NOTE | 2017-03-14 14:25 | NUR ---
Seen by pharmacist. Instructed to take medications as prescribed. Home medication prescriptions given to patient. Patient discharged in stable condition via wheelchair, accompanied by .
== END 2017-03-14 13:35 | disposition home health service (06) | DRG 190 ==
LOC: MERGE 14:08
PROVIDERS: ADMIT Physical Medicine & Rehabilitation Pain Medicine; ATTEND Physical Medicine & Rehabilitation Pain Medicine
DX: J44.0 Chronic obstructive pulmonary disease with (acute) lower respiratory infection (principal); J15.9 Unspecified bacterial pneumonia; I50.33 Acute on chronic diastolic (congestive) heart failure; D68.59 Other primary thrombophilia; N39.0 Urinary tract infection, site not specified; R53.1 Weakness; I10 Essential (primary) hypertension; E78.5 Hyperlipidemia, unspecified; Z90.49 Acquired absence of other specified parts of digestive tract; Z90.710 Acquired absence of both cervix and uterus; G89.29 Other chronic pain; F41.9 Anxiety disorder, unspecified; G25.81 Restless legs syndrome; D50.9 Iron deficiency anemia, unspecified; F41.8 Other specified anxiety disorders; E66.9 Obesity, unspecified; Z88.1 Allergy status to other antibiotic agents; M54.5 Low back pain; M19.90 Unspecified osteoarthritis, unspecified site; K59.00 Constipation, unspecified; Z91.81 History of falling; F32.9 Major depressive disorder, single episode, unspecified; F17.210 Nicotine dependence, cigarettes, uncomplicated; E03.9 Hypothyroidism, unspecified; M54.16 Radiculopathy, lumbar region; Z68.24 Body mass index [BMI] 24.0-24.9, adult; R19.5 Other fecal abnormalities; N28.1 Cyst of kidney, acquired; G47.00 Insomnia, unspecified; D50.0 Iron deficiency anemia secondary to blood loss (chronic); I11.0 Hypertensive heart disease with heart failure; M94.0 Chondrocostal junction syndrome [Tietze]; R42 Dizziness and giddiness; L29.9 Pruritus, unspecified
CPT/HCPCS: 36415; 70030-TC; 71010; 82378; 83735; 84100; 85025; 87077; 87086; 92610; 93005; 94640; 94664; 97110; 97112; 97116; 97161; 97530; 97535; J1650; J7030; J7512; Q0144; Q0162

== ENCOUNTER 2017-03-23 18:41 | Inpatient (IN) | payer MEDICARE, MEDICAID ==
[~2017-03-23] VITALS: Ht 165.1 cm; Wt 73.5 kg
[~2017-03-23 18:41] MED LIST changes: +ALBU2.5V38 NEB; +AMLO5TAB2 PO; +ASPI-605 PO; +AZIT250T6 PO; +ENOX40DI SQ; +ESOM40CA PO; +FLUT1BLS IH; +GABA600T2 PO; +ICOS1CAP PO; +MAGN400C PO; -MAGN400O4 PO; +MAGN400O6 PO; +MONT10TA25 PO; +MULT-1168 PO; +OLME20TA21 PO; +PRED20TA PO; +ROPI0.5T PO; +ROSU10TA PO; +THYR30TA2 PO; +TIOT4MIS3 IH
[2017-03-23] MEDS ORDERED: methylPREDNISolone SOD SUCC 125 MG/2 ML VIAL IV ONE (19:00)
--- NOTE | 2017-03-23 19:00 | NUR ---
Pt list of home medications from previous visit reviewed with pt and pt's record updated accordingly.
--- NOTE | 2017-03-23 19:13 | NUR ---
PT IS IN ROOM #1B. DR TIWARI EVALUATED THE PT.
[2017-03-23] MEDS ORDERED: MEROPENEM 1 G in IV NORMAL SALINE 100 ML IV ONE (19:15)
[2017-03-23] MEDS ORDERED: METRONIDAZOLE 500 MG/NS 100ML 100 ML IV ONE ×2 (19:15→20:07)
[2017-03-23] MEDS ORDERED: IV NORMAL SALINE 1000 ML BAG IV ONE (19:15)
[2017-03-23] MEDS ORDERED: methylPREDNISolone SOD SUCC 125 MG/2 ML VIAL ONE (19:38)
[2017-03-23 19:45] LABS: BASOPHILS % (AUTO) 0.5 % (0.0-2.0); EOSINOPHILS # (AUTO) 0.1 K/uL (0.0-0.7); EOSINOPHILS % (AUTO) 0.9 % (0.0-7.0); HEMATOCRIT 28.5 % (37-47); HEMOGLOBIN 9.4 G/DL (12.0-16.0); LYMPHOCYTES # (AUTO) 0.9 K/UL (0.8-4.8); LYMPHOCYTES % (AUTO) 16.2 % (20.5-51.5); MEAN CORPUSCULAR HGB CONC 33 g/dL (32.0-37.0); MEAN CORPUSCULAR VOLUME 79.4 FL (81.0-99.0); MONOCYTES # (AUTO) 0.2 K/UL (0.1-1.30); MONOCYTES % (AUTO) 2.8 % (0.0-11.0); NEUTROPHILS # (AUTO) 4.4 K/UL (1.8-8.9); NEUTROPHILS % (AUTO) 79.6 % (38.5-71.5); PLATELET COUNT (AUTO) 211 K/UL (150-450); RED BLOOD CELL COUNT(AUTO) 3.59 MIL/UL (4.2-5.4); WHITE BLOOD COUNT (AUTO) 5.6 K/UL (4.0-11.2)
[2017-03-23 19:52] LABS: CARBON DIOXIDE 23 mmol/L (21-32); CHLORIDE 108 mmol/L (98-107); CREATININE 0.7 mg/dL (0.6-1.3); GLUCOSE 129 mg/dL (74-106); POTASSIUM 4.4 mmol/L (3.5-5.1); UREA NITROGEN, BLOOD 19 mg/dL (7-18)
[2017-03-23 20:05] LABS: ALANINE AMINOTRANSFERASE 21 U/L (14-59); ALKALINE PHOSPHATASE 52 U/L (50-136); ASPARTATE AMINOTRANSFERASE 18 U/L (15-37); BILIRUBIN,DIRECT 0.1 mg/dL (0.0-0.2); BILIRUBIN,TOTAL 0.3 mg/dL (0.2-1.0); TOTAL PROTEIN, SERUM 6.8 g/dL (6.4-8.2)
[2017-03-23 20:11] LABS: ABG BASE EXCESS -3.8 mmol/L; ABG HCO3 20.2 mmol/L; ABG PCO2 32.9 mmHg (35.0-45.0); ABG PH 7.407 (7.350-7.450); ABG PO2 73.2 mmHg (75.0-100.0); ABG SITE LEFT RADIAL; ABG TOTAL HEMOGLOBIN 9.7 G/dL (12.0-16.0); COHb 2.8 % (0.5-1.5); MetHb 0.3 % (0.0-1.5); O2Hb 91.7 % (94.0-97.0); VENT MODE ROOM AIR
[2017-03-23] MEDS ORDERED: MEROPENEM 1 G VIAL IV ONE (20:14)
[2017-03-23] MEDS ORDERED: FUROSEMIDE 20 MG/2 ML VIAL IV ONE (21:45)
[2017-03-23] MEDS ORDERED: FUROSEMIDE 40 MG/4 ML VIAL ONE (22:03)
--- NOTE | 2017-03-23 23:16 | NUR ---
Pt. admitted to Telemetry , under care of Dr. Wogn. Dx: CHF/COPD Belongs List completed
[2017-03-23] MEDS ORDERED: ONDANSETRON 4 MG/2 ML VIAL IV PRN (23:30)
[2017-03-23] MEDS ORDERED: ALBUTEROL SULFATE 2.5 MG/3 ML NEBU NEB PRN (23:30)
[2017-03-23] MEDS ORDERED: HYDROCODONE/APAP 5-325MG TABLET PO PRN (23:30)
[2017-03-23] MEDS ORDERED: IPRATROPIUM BROMIDE 0.5 MG/2.5 ML NEBU NEB PRN (23:30)
[2017-03-23] MEDS ORDERED: MORPHINE SULFATE 2 MG/1 ML DISP.SYRIN IV PRN (23:30)
[2017-03-23] MEDS ORDERED: MAGNESIUM HYDROXIDE 30 ML LIQUID UDC PO PRN (23:30)
[2017-03-23 23:33] VITALS: BP 131/77
[2017-03-24] MEDS ORDERED: AZITHROMYCIN 500 MG VIAL IV ONE (00:51)
[2017-03-24] MEDS: AZITHROMYCIN IV 500 MG in IV DEXTROSE 5% 250 ML IV SCH ×2 (00:56→23:16)
[2017-03-24 04:00] VITALS: BP 120/79
[2017-03-24] MEDS ORDERED: methylPREDNISolone SOD SUCC 40 MG/ML VIAL ONE (05:46)
[2017-03-24] MEDS: ALPRAZOLAM 0.25 MG TABLET PO PRN ×3 (05:47→19:03)
[2017-03-24] MEDS ORDERED: ALPRAZOLAM 0.25 MG TABLET ONE (05:47)
[2017-03-24] MEDS: methylPREDNISolone SOD SUCC 40 MG/ML VIAL IV SCH ×3 (05:48→21:00)
[2017-03-24] MEDS: ACETAMINOPHEN 325 MG TABLET PO PRN ×3 (05:48→21:01)
[2017-03-24] MEDS ORDERED: ACETAMINOPHEN 325 MG TABLET ONE (05:48)
--- NOTE | 2017-03-24 06:27 | NUR ---
PATIENT SLEPT MOST OF THE NIGHT, NO SOB NO CHEST PAIN, RYTHM SINUS RYTHM, KEPT CLEAN DRY AND COMFORTABLE. REQUEST FOR XANAX FOR ANXIETY, AND TYLENOL 650MG FOR NECK PAIN, ON OXYGEN THERAPY 2LNC, CONT TO MONITOR.
[2017-03-24 07:07] LABS: BASOPHILS % (AUTO) 0.1 % (0.0-2.0); EOSINOPHILS % (AUTO) 0.7 % (0.0-7.0); HEMATOCRIT 28.7 % (37-47); HEMOGLOBIN 9.3 G/DL (12.0-16.0); LYMPHOCYTES # (AUTO) 0.8 K/UL (0.8-4.8); LYMPHOCYTES % (AUTO) 17.7 % (20.5-51.5); MEAN CORPUSCULAR HEMOGLOBIN 25.7 UUG (27.0-31.0); MEAN CORPUSCULAR HGB CONC 32 g/dL (32.0-37.0); MEAN CORPUSCULAR VOLUME 79.8 FL (81.0-99.0); MONOCYTES % (AUTO) 0.7 % (0.0-11.0); NEUTROPHILS # (AUTO) 3.8 K/UL (1.8-8.9); NEUTROPHILS % (AUTO) 80.8 % (38.5-71.5); PLATELET COUNT (AUTO) 234 K/UL (150-450); WHITE BLOOD COUNT (AUTO) 4.6 K/UL (4.0-11.2)
[2017-03-24 07:21] LABS: ALANINE AMINOTRANSFERASE 23 U/L (14-59); ALKALINE PHOSPHATASE 45 U/L (50-136); ASPARTATE AMINOTRANSFERASE 15 U/L (15-37); BILIRUBIN,TOTAL 0.2 mg/dL (0.2-1.0); CARBON DIOXIDE 23 mmol/L (21-32); CHLORIDE 108 mmol/L (98-107); CREATININE 0.7 mg/dL (0.6-1.3); GLUCOSE 124 mg/dL (74-106); MAGNESIUM 1.7 mg/dL (1.8-2.4); POTASSIUM 4.2 mmol/L (3.5-5.1); TOTAL PROTEIN, SERUM 6.5 g/dL (6.4-8.2); UREA NITROGEN, BLOOD 17 mg/dL (7-18)
[2017-03-24] MEDS ORDERED: FLUTICASONE/SALMETEROL 250/50 INHALER INH SCH (09:00)
[2017-03-24] MEDS: FUROSEMIDE 20 MG/2 ML VIAL IV SCH (09:04)
[2017-03-24] MEDS: PANTOPRAZOLE SODIUM 40 MG TABLET.DR PO SCH (09:04)
[2017-03-24] MEDS: NICOTINE 14 MG/24HR PATCH TD SCH (09:04)
--- NOTE | 2017-03-24 10:00 | NUR ---
OFFER SLEEPING TO THE PATIENT PER HER REQUEST, PATIENT STATED THAT SHE PREFER XANAX INSTEAD OF AMBIEN, RESPECT PATIENT WISHES.
[2017-03-24 11:49] VITALS: BP 123/68
[2017-03-24] MEDS: FLUTICASONE/VILANTEROL 1 EACH BLST.W.DEV INH SCH (11:50)
[2017-03-24] MEDS ORDERED: THYR30TA2 PO (12:13)
[2017-03-24] MEDS ORDERED: MONT10TA22 PO (12:13)
[2017-03-24] MEDS ORDERED: METH4TAB21 PO (12:13)
[2017-03-24] MEDS ORDERED: MAGN400C PO (12:13)
[2017-03-24] MEDS ORDERED: ASPI-618 PO (12:13)
[2017-03-24] MEDS ORDERED: DULO60CA45 PO (12:13)
[2017-03-24] MEDS ORDERED: GABA600T PO (12:13)
[2017-03-24] MEDS ORDERED: PANT40TA2 PO (12:13)
[2017-03-24] MEDS ORDERED: ROPI1TAB2 PO (12:13)
[2017-03-24] MEDS ORDERED: SENN-167 PO (12:13)
[2017-03-24] MEDS ORDERED: FLUT1DIS28 IH (12:13)
[2017-03-24] MEDS ORDERED: ATOR10TA PO (12:13)
[2017-03-24] MEDS ORDERED: FLUD0.1T PO (12:13)
[2017-03-24] MEDS ORDERED: MULT-658 PO (12:13)
[2017-03-24 15:30] VITALS: BP 128/69
[2017-03-24] MEDS: MONTELUKAST SODIUM 10 MG TABLET PO SCH (17:32)
[2017-03-24] MEDS: GABAPENTIN 400 MG CAPSULE PO SCH (17:32)
[2017-03-24] MEDS: ropiniROLE 1 MG TABLET PO SCH (17:32)
--- NOTE | 2017-03-24 18:11 | NUR ---
PATIENT COOPERATIVE, NO SOB NO CHEST PAIN, RYTHM SINUS RYTHM, KEPT CLEAN DRY AND COMFORTABLE. REQUEST FOR XANAX FOR ANXIETY, AND TYLENOL 650MG FOR HEADACHE PAIN, ON OXYGEN THERAPY 2LNC.
[2017-03-24 19:00] VITALS: BP 120/70
--- NOTE | 2017-03-24 19:00 | NUR ---
PATIENT IN BED, NO SOB NO CHEST PAIN, RYTHM IS SINUS RYTHM, PATIENT DENIES PAIN AT THIS TIME, ASSISTED WITH TOILETING, CALL LIGHT WITHIN REACH.
[2017-03-24] MEDS: SENNOSIDES 1 TABLET PO SCH (20:59)
[2017-03-24] MEDS: ATORVASTATIN 10 MG TABLET PO SCH (20:59)
[2017-03-24] MEDS: DOCUSATE SODIUM 100 MG CAPSULE PO SCH (20:59)
[2017-03-24] MEDS: MAGNESIUM OXIDE 400 MG TABLET PO SCH (20:59)
[2017-03-24] MEDS ORDERED: FLUTICASONE/SALMETEROL 250/50 INHALER IH SCH (21:00)
[2017-03-24] MEDS ORDERED: DOCUSATE SODIUM 250 MG CAPSULE PO SCH (21:00)
--- NOTE | 2017-03-24 22:02 | NUR ---
PATIENT REQUESTED SLEEPING, NOTIFY DR. DISHA ÁLVAREZ ORDER OF AMBIEN 5MG PO QHS PRN FOR INSOMNIA. ORDER NOTED AND CARRRIED OUT.
[2017-03-24] MEDS ORDERED: ZOLPIDEM 5 MG TABLET PO PRN (22:15)
[2017-03-24 23:59] VITALS: BP 108/62
[2017-03-25] MEDS: ALPRAZOLAM 0.25 MG TABLET PO PRN ×4 (01:09→20:14)
[2017-03-25 04:00] VITALS: BP 120/79
[2017-03-25] MEDS: PANTOPRAZOLE SODIUM 40 MG TABLET.DR PO SCH (06:30)
--- NOTE | 2017-03-25 06:51 | NUR ---
PATIENT SLEPT MOST OF THE NIGHT, NO SOB NO CHEST PAIN NOTED, RYTHM SINUS RYTHM, NO S/S OF DISTRESS.
[2017-03-25] MEDS: methylPREDNISolone SOD SUCC 40 MG/ML VIAL IV SCH ×3 (06:59→21:49)
[2017-03-25] MEDS ORDERED: THYROID 15 MG TABLET PO SCH (07:00)
[2017-03-25] MEDS ORDERED: THYROID 60 MG TABLET PO SCH (07:00)
[2017-03-25 07:33] LABS: ALANINE AMINOTRANSFERASE 21 U/L (14-59); ALKALINE PHOSPHATASE 41 U/L (50-136); ASPARTATE AMINOTRANSFERASE 5 U/L (15-37); BILIRUBIN,TOTAL 0.2 mg/dL (0.2-1.0); CARBON DIOXIDE 25 mmol/L (21-32); CHLORIDE 107 mmol/L (98-107); CREATININE 0.6 mg/dL (0.6-1.3); GLUCOSE 110 mg/dL (74-106); PHOSPHOROUS 2.9 mg/dL (2.5-4.9); POTASSIUM 4.3 mmol/L (3.5-5.1); TOTAL PROTEIN, SERUM 6.5 g/dL (6.4-8.2); UREA NITROGEN, BLOOD 22 mg/dL (7-18)
[2017-03-25 07:53] LABS: BASOPHILS % (AUTO) 0.1 % (0.0-2.0); EOSINOPHILS # (AUTO) 0.1 K/uL (0.0-0.7); HEMOGLOBIN 9.5 G/DL (12.0-16.0); LYMPHOCYTES # (AUTO) 1.3 K/UL (0.8-4.8); LYMPHOCYTES % (AUTO) 15.6 % (20.5-51.5); MEAN CORPUSCULAR HEMOGLOBIN 26.1 UUG (27.0-31.0); MEAN CORPUSCULAR HGB CONC 33 g/dL (32.0-37.0); MEAN CORPUSCULAR VOLUME 79.5 FL (81.0-99.0); MONOCYTES # (AUTO) 0.4 K/UL (0.1-1.30); MONOCYTES % (AUTO) 4.9 % (0.0-11.0); NEUTROPHILS # (AUTO) 6.2 K/UL (1.8-8.9); NEUTROPHILS % (AUTO) 78.4 % (38.5-71.5); PLATELET COUNT (AUTO) 258 K/UL (150-450); RED BLOOD CELL COUNT(AUTO) 3.64 MIL/UL (4.2-5.4)
[2017-03-25] MEDS: FUROSEMIDE 20 MG/2 ML VIAL IV SCH (08:37)
[2017-03-25] MEDS: ropiniROLE 1 MG TABLET PO SCH ×2 (08:37→17:13)
[2017-03-25] MEDS: GABAPENTIN 400 MG CAPSULE PO SCH ×3 (08:37→17:12)
[2017-03-25] MEDS: FLUTICASONE/VILANTEROL 1 EACH BLST.W.DEV INH SCH (08:39)
[2017-03-25] MEDS: NICOTINE 14 MG/24HR PATCH TD SCH (08:39)
[2017-03-25] MEDS ORDERED: ASPIRIN EC 81 MG TABLET.DR PO SCH (09:00)
[2017-03-25] MEDS ORDERED: MULTIVIT, IRON, MIN NO. 8, FA TABLET PO SCH (09:00)
[2017-03-25] MEDS ORDERED: FLUTICASONE/VILANTEROL 1 EACH BLST.W.DEV INH SCH (09:00)
[2017-03-25] MEDS ORDERED: DULOXETINE 60 MG CAPSULE.DR PO SCH (09:00)
[2017-03-25] MEDS ORDERED: [UNRECOGNIZED DRUG - MIXTURE] PO SCH (09:00)
[2017-03-25] MEDS ORDERED: Medication Not On Formulary EA (Thyroid (Armour Thyroid) 30 MG) PO SCH (09:00)
[2017-03-25] MEDS ORDERED: FLUDROCORTISONE ACETATE 0.1 MG TABLET PO SCH (09:00)
[2017-03-25 11:27] VITALS: BP 127/65
[2017-03-25] MEDS: ACETAMINOPHEN 325 MG TABLET PO PRN ×2 (11:28→20:15)
[2017-03-25 15:08] VITALS: BP_SYST 111; BP_SYST 127; BP_DIAS 56; BP_DIAS 65
[2017-03-25] MEDS: MONTELUKAST SODIUM 10 MG TABLET PO SCH (17:15)
[2017-03-25 19:00] VITALS: BP 115/60
--- NOTE | 2017-03-25 19:00 | NUR ---
Bedside reporting with BENJAMIN Workman. Patient on bed, awake, not in distress. HOB elevated with continuos O2 at 2L via NC saturating 98% at this time. Denies any pain/discomforts at this time. Safety measures and fall precaution maintained. Continue care as planned.
--- NOTE | 2017-03-25 19:01 | NUR ---
PATIENT AMBULATED WITH PHYSICAL THERAPY, AND HAD SEVERAL MOMENTS OF ANXIETY THROUGHOUT THE DAY. VITALS ARE STABLE, NO EVIDENCE OF PHYSICAL DISTRESS VITALS WNL. PATIENT WILL BE TRANSFERRED TO [facility]
[2017-03-25] MEDS ORDERED: NICO1PAT25 TD (19:51)
[2017-03-25] MEDS ORDERED: ACET325T53 PO (19:51)
[2017-03-25] MEDS ORDERED: ALPR0.25 PO (19:51)
[2017-03-25] MEDS ORDERED: ZOLP5TAB8 PO (19:51)
[2017-03-25] MEDS ORDERED: FLUT1BLS INH (19:51)
[2017-03-25] MEDS ORDERED: DOCU100C36 PO (20:03)
[2017-03-25] MEDS ORDERED: FURO-152 PO (20:03)
[2017-03-25] MEDS ORDERED: AZIT250T6 PO (20:03)
[2017-03-25] MEDS ORDERED: ALBU2.5V7 NEB (20:03)
[2017-03-25] MEDS ORDERED: PRED2.5T PO (20:03)
[2017-03-25] MEDS: ATORVASTATIN 10 MG TABLET PO SCH (20:13)
[2017-03-25] MEDS: DOCUSATE SODIUM 100 MG CAPSULE PO SCH (20:13)
[2017-03-25] MEDS: SENNOSIDES 1 TABLET PO SCH (20:13)
[2017-03-25] MEDS: MAGNESIUM OXIDE 400 MG TABLET PO SCH (20:13)
[2017-03-25] MEDS ORDERED: AZITHROMYCIN 250 MG TABLET PO SCH (21:00)
--- NOTE | 2017-03-25 21:40 | NUR ---
Report given to Ayana from [facility].
--- NOTE | 2017-03-25 21:55 | NUR ---
Patient was wheeled down via wheel chair by one of our staff to ARU in stable condition. Denies any pain or discomforts. Not in respiratory distress.
== END 2017-03-25 21:55 | DRG 291 ==
LOC: ER 18:42 → TELE 23:08 → MED 03-25 14:25
PROVIDERS: ADMIT Internal Medicine; ATTEND Internal Medicine
DX: I11.0 Hypertensive heart disease with heart failure (principal); J96.01 Acute respiratory failure with hypoxia; J44.1 Chronic obstructive pulmonary disease with (acute) exacerbation; D68.59 Other primary thrombophilia; K92.2 Gastrointestinal hemorrhage, unspecified; I50.33 Acute on chronic diastolic (congestive) heart failure; E66.9 Obesity, unspecified; Z68.27 Body mass index [BMI] 27.0-27.9, adult; Z90.49 Acquired absence of other specified parts of digestive tract; Z90.710 Acquired absence of both cervix and uterus; Z88.1 Allergy status to other antibiotic agents; M79.7 Fibromyalgia; R97.0 Elevated carcinoembryonic antigen [CEA]; F17.210 Nicotine dependence, cigarettes, uncomplicated; G25.81 Restless legs syndrome; Z79.899 Other long term (current) drug therapy; M80.88XD Other osteoporosis with current pathological fracture, vertebra(e), subsequent encounter for fracture with routine healing; F41.9 Anxiety disorder, unspecified; M54.17 Radiculopathy, lumbosacral region; G89.29 Other chronic pain; E03.9 Hypothyroidism, unspecified; E78.5 Hyperlipidemia, unspecified; D50.0 Iron deficiency anemia secondary to blood loss (chronic); Z87.81 Personal history of (healed) traumatic fracture; Z74.09 Other reduced mobility; Z79.82 Long term (current) use of aspirin; R29.6 Repeated falls; N28.1 Cyst of kidney, acquired; M47.814 Spondylosis without myelopathy or radiculopathy, thoracic region
CPT/HCPCS: 36415; 36600; 70030-TC; 71010; 83605; 83735; 84100; 85025; 87040; 87400; 93005; 97116; 97161; 97530; A4663; J0456; J1940; J2185; J2920; J2930; J3490; J7030; J7050; J7060; Q0144

== ENCOUNTER 2017-03-25 22:15 | Inpatient (IN) | payer MEDICARE, MEDICAID ==
[~2017-03-25 22:15] MED LIST changes: +ACET325T53 PO; -ALBU2.5V13 NEB; -ALBU2.5V38 NEB; +ALBU2.5V7 NEB; -AMLO5TAB2 PO; -ASPI-605 PO; +ASPI-618 PO; -ASPI81TA31 PO; +ATOR10TA PO; -Acetaminophen PO; +DOCU100C36 PO; -Docusate Sodium PO; -ENOX40DI SQ; -ESOM40CA PO; +FLUD0.1T PO; -FLUT1BLS IH; +FLUT1BLS INH; +FLUT1DIS28 IH; +FURO-152 PO; -GABA600T2 PO; -HYDR-3326 PO; -ICOS1CAP PO; -IPRA0.2S6 NEB; -LEVO25TA9 PO; -MAGN400O6 PO; +METH4TAB21 PO; -MONT10TA25 PO; -MULT-1168 PO; -MULT-24 PO; +MULT-658 PO; +NICO1PAT25 TD; -OLME20TA21 PO; +PRED2.5T PO; -PRED20TA PO; -ROPI0.5T PO; -ROSU10TA PO; +SENN-167 PO; -TIOT4MIS3 IH; +ZOLP5TAB8 PO; +methylPREDNISolone SOD SUCC 40 MG/ML VIAL ONE
--- NOTE | 2017-03-25 22:15 | NUR ---
Patient arrived from the med surg dept. She is alert and oriented and verbally able to let needs known. Has no complains of pain or discomfort at this time. No signs of respiratory distress noted. Oriented to room and unit, stated that she wants a private room, she's willing to have a non private room tonight and we will work on getting her a private room tomorrow. She agreed on that. Patient has call light within reach, will continue to monitor.
[2017-03-25 23:00] VITALS: BP 117/73
--- NOTE | 2017-03-25 23:00 | NUR ---
Called Dr Melissa and he wanted to continue medications as ordered on recon. All medications were documented as ordered
[2017-03-26] MEDS: ZOLPIDEM 5 MG TABLET PO PRN ×2 (01:35→23:43)
--- NOTE | 2017-03-26 01:35 | NUR ---
Patient requested pako for insomnia. Medication was administered as requested, will continue to monitor.
[2017-03-26] MEDS ORDERED: ALBUTEROL SULFATE 2.5 MG/3 ML NEBU NEB PRN (01:45)
[2017-03-26] MEDS ORDERED: ZOLPIDEM 5 MG TABLET ONE (01:45)
[2017-03-26] MEDS ORDERED: AZITHROMYCIN 250 MG TABLET PO SCH ×2 (01:45→21:00)
[2017-03-26] MEDS ORDERED: methylPREDNISolone 1 PACK TAB.DS.PK [4MG TAB] PO PRN (01:45)
[2017-03-26] MEDS ORDERED: ALPRAZOLAM 0.25 MG TABLET PO SCH (01:45)
[2017-03-26] MEDS ORDERED: ALPRAZOLAM 0.25 MG TABLET ONE (05:18)
--- NOTE | 2017-03-26 06:17 | NUR ---
Slept intermittently throughout the night, had no complains of pain or discomfort, no signs of respiratory distress, vitals WNL. O2 sat>94 %, Call light within reach, all needs attended to.
[2017-03-26] MEDS ORDERED: ALBUTEROL SULFATE 2.5 MG/3 ML NEBU ONE (06:45)
[2017-03-26 08:00] VITALS: BP 122/63
[2017-03-26] MEDS: GABAPENTIN 300 MG CAPSULE PO SCH ×3 (09:00→17:39)
[2017-03-26] MEDS: ASPIRIN EC 81 MG TABLET.DR PO SCH (10:07)
[2017-03-26] MEDS: MONTELUKAST SODIUM 10 MG TABLET PO SCH (10:08)
[2017-03-26] MEDS: FLUDROCORTISONE ACETATE 0.1 MG TABLET PO SCH (10:08)
[2017-03-26] MEDS: MULTIVIT, IRON, MIN NO. 8, FA TABLET PO SCH (10:08)
[2017-03-26] MEDS: FUROSEMIDE 20 MG TABLET PO SCH (10:09)
[2017-03-26] MEDS: ropiniROLE 1 MG TABLET PO SCH ×2 (10:09→17:39)
[2017-03-26] MEDS: predniSONE 2.5 MG TABLET PO SCH (10:09)
[2017-03-26] MEDS: DULOXETINE 60 MG CAPSULE.DR PO SCH (10:10)
[2017-03-26] MEDS: ACETAMINOPHEN 325 MG TABLET PO PRN (10:10)
[2017-03-26] MEDS: ALPRAZOLAM 0.25 MG TABLET PO PRN ×2 (12:41→18:45)
[2017-03-26] MEDS: FLUTICASONE/VILANTEROL 1 EACH BLST.W.DEV INH SCH (12:42)
[2017-03-26] MEDS: PANTOPRAZOLE SODIUM 40 MG TABLET.DR PO SCH (12:42)
[2017-03-26] MEDS: NICOTINE 14 MG/24HR PATCH TD SCH (12:42)
[2017-03-26] MEDS: THYROID 60 MG TABLET PO SCH (12:43)
[2017-03-26] MEDS: ALBUTEROL SULFATE 2.5 MG/3 ML NEBU NEB SCH (18:08)
--- NOTE | 2017-03-26 18:47 | NUR ---
Pt. anxious about moving to a private room in am and room transfer to [facility] completed in midafternoon. Pt. c/o headache in am and Tylenol given with some effectiveness. Family at bs in am. Pt. in good spirits at end of shift.
[2017-03-26] MEDS ORDERED: DOXEPIN HCL PO SCH (21:00)
[2017-03-26 21:08] VITALS: BP 119/56
[2017-03-26 21:11] VITALS: BP 119/56
[2017-03-26] MEDS: SENNOSIDES 1 TABLET PO SCH (21:18)
[2017-03-26] MEDS: AZITHROMYCIN 250 MG TABLET PO SCH (21:19)
[2017-03-26] MEDS: ATORVASTATIN 10 MG TABLET PO SCH (21:19)
[2017-03-26] MEDS: DOCUSATE SODIUM 100 MG CAPSULE PO SCH (21:19)
[2017-03-26] MEDS: MAGNESIUM OXIDE 400 MG TABLET PO SCH (21:19)
[2017-03-27] MEDS: ALBUTEROL SULFATE 2.5 MG/3 ML NEBU NEB SCH ×5 (01:06→19:31)
[2017-03-27] MEDS: ALPRAZOLAM 0.25 MG TABLET PO PRN ×3 (01:31→20:50)
[2017-03-27] MEDS: THYROID 60 MG TABLET PO SCH (06:15)
--- NOTE | 2017-03-27 06:23 | NUR ---
Patient alert and oriented and verbally able to let needs known, slept intermittently throughout the night. Had no complains of pain or discomfort, had no signs of respiratory distress. Patient has call light within reach, all needs attended to.
[2017-03-27] MEDS: PANTOPRAZOLE SODIUM 40 MG TABLET.DR PO SCH (08:13)
--- NOTE | 2017-03-27 08:19 | NUR ---
Report received from awake overnight counselor. Received patient awake in bed, alert and oriented x4. Not in any form of distress. Complains of head ache rated as 6/. PRN Tylenol 650 mg given.
[2017-03-27] MEDS: FLUTICASONE/VILANTEROL 1 EACH BLST.W.DEV INH SCH (08:31)
[2017-03-27] MEDS: FUROSEMIDE 20 MG TABLET PO SCH (08:33)
[2017-03-27] MEDS: ASPIRIN EC 81 MG TABLET.DR PO SCH (08:33)
[2017-03-27] MEDS: DULOXETINE 60 MG CAPSULE.DR PO SCH (08:33)
[2017-03-27] MEDS: GABAPENTIN 300 MG CAPSULE PO SCH ×3 (08:33→17:32)
[2017-03-27] MEDS: FLUDROCORTISONE ACETATE 0.1 MG TABLET PO SCH (08:33)
[2017-03-27] MEDS: predniSONE 2.5 MG TABLET PO SCH (08:34)
[2017-03-27] MEDS: ACETAMINOPHEN 325 MG TABLET PO PRN (08:34)
[2017-03-27] MEDS: MONTELUKAST SODIUM 10 MG TABLET PO SCH (08:34)
[2017-03-27] MEDS: MULTIVIT, IRON, MIN NO. 8, FA TABLET PO SCH (08:34)
[2017-03-27] MEDS: NICOTINE 14 MG/24HR PATCH TD SCH (08:34)
[2017-03-27] MEDS: ropiniROLE 1 MG TABLET PO SCH ×2 (08:34→17:32)
[2017-03-27] MEDS ORDERED: ALBUTEROL SULFATE 2.5 MG/3 ML NEBU ONE (10:25)
--- NOTE | 2017-03-27 13:34 | NUR ---
Patient is anxious she said she got tired from PT. Xanax PRN given. No pain noted.
[2017-03-27 14:22] VITALS: BP 158/78
[2017-03-27] MEDS ORDERED: NICOTINE 14 MG/24HR PATCH TD ONE (16:15)
--- NOTE | 2017-03-27 18:00 | NUR ---
Patient seen by Dr. Melissa, awake in bed, a/o x4 . No complaints of discomfort or pain at the moment. Informed Dr. Melissa of chemical prophylaxis for VTE, Lovenox 30 mg ordered.
--- NOTE | 2017-03-27 20:00 | NUR ---
RECEIVED PATIENT AWAKE IN BED. PATIENT IS A/O X3. FARSI SPEAKING BUT ABLE TO MAKE NEEDS KNOWN. VERY PLEASANT WHEN APPROACHED. VSS. DENIES PAIN OR DISCOMFORT. NO RESP. DISTRESS NOTED. BED ALARM ON. CALL LIGHT IN REACH. ALL NEEDS ATTENDED. WILL CONTINUE TO MONITOR.
[2017-03-27 20:19] VITALS: BP 109/58
[2017-03-27] MEDS: DOCUSATE SODIUM 100 MG CAPSULE PO SCH (20:49)
[2017-03-27] MEDS: MAGNESIUM OXIDE 400 MG TABLET PO SCH (20:50)
[2017-03-27] MEDS: SENNOSIDES 1 TABLET PO SCH (20:50)
[2017-03-27] MEDS: DOXEPIN 10 MG CAPSULE PO SCH (20:50)
[2017-03-27] MEDS: ATORVASTATIN 10 MG TABLET PO SCH (20:50)
[2017-03-27] MEDS: AZITHROMYCIN 250 MG TABLET PO SCH (20:50)
--- NOTE | 2017-03-27 20:50 | NUR ---
PATIENT GIVEN XANAX 0.25MG PO PRN FOR ANXIETY. WILL CONTINUE TO MONITOR. BED ALARM ON. CALL LIGHT IN REACH.
[2017-03-28] MEDS: ALBUTEROL SULFATE 2.5 MG/3 ML NEBU NEB SCH ×4 (00:45→19:07)
[2017-03-28] MEDS: PANTOPRAZOLE SODIUM 40 MG TABLET.DR PO SCH (06:07)
[2017-03-28] MEDS: THYROID 60 MG TABLET PO SCH (06:07)
--- NOTE | 2017-03-28 06:30 | NUR ---
PATIENT ASLEEP IN BED. EASILY AROUSABLE. SLEPT WELL THROUGHOUT THE NIGHT. CALL LIGHT IN REACH. ALL NEEDS ATTENDED. WILL CONTINUE TO MONITOR.
[2017-03-28 08:00] VITALS: BP 137/70
[2017-03-28] MEDS: MONTELUKAST SODIUM 10 MG TABLET PO SCH (09:06)
[2017-03-28] MEDS: ropiniROLE 1 MG TABLET PO SCH ×2 (09:06→17:21)
[2017-03-28] MEDS: MULTIVIT, IRON, MIN NO. 8, FA TABLET PO SCH (09:06)
[2017-03-28] MEDS: predniSONE 2.5 MG TABLET PO SCH (09:07)
[2017-03-28] MEDS: ASPIRIN EC 81 MG TABLET.DR PO SCH (09:07)
[2017-03-28] MEDS: FLUDROCORTISONE ACETATE 0.1 MG TABLET PO SCH (09:07)
[2017-03-28] MEDS: GABAPENTIN 300 MG CAPSULE PO SCH ×3 (09:07→17:21)
[2017-03-28] MEDS: FUROSEMIDE 20 MG TABLET PO SCH (09:07)
[2017-03-28] MEDS: NICOTINE 14 MG/24HR PATCH TD SCH (09:08)
[2017-03-28] MEDS: ENOXAPARIN SODIUM 30 MG/0.3 ML DISP.SYRIN SUBCUT SCH (09:08)
[2017-03-28] MEDS: DULOXETINE 60 MG CAPSULE.DR PO SCH (09:11)
[2017-03-28] MEDS: FLUTICASONE/VILANTEROL 1 EACH BLST.W.DEV INH SCH (09:11)
[2017-03-28] MEDS: ACETAMINOPHEN 325 MG TABLET PO PRN (12:15)
[2017-03-28] MEDS: ALPRAZOLAM 0.25 MG TABLET PO PRN ×2 (12:18→23:26)
--- NOTE | 2017-03-28 19:30 | NUR ---
Received patient resting in bed, no s/s of distress. No complaints of pain at this time. Call light within reach. Reminded to call for help whenever needed. Will continue to monitor.
[2017-03-28] MEDS: DOXEPIN 10 MG CAPSULE PO SCH (20:13)
[2017-03-28] MEDS: AZITHROMYCIN 250 MG TABLET PO SCH (20:15)
[2017-03-28] MEDS: DOCUSATE SODIUM 100 MG CAPSULE PO SCH (20:15)
[2017-03-28] MEDS: ATORVASTATIN 10 MG TABLET PO SCH (20:15)
[2017-03-28] MEDS: MAGNESIUM OXIDE 400 MG TABLET PO SCH (20:15)
[2017-03-28] MEDS: SENNOSIDES 1 TABLET PO SCH (20:16)
[2017-03-28] MEDS ORDERED: ZOLPIDEM 5 MG TABLET PO PRN (22:45)
[2017-03-29] MEDS: ALBUTEROL SULFATE 2.5 MG/3 ML NEBU NEB SCH ×4 (01:02→19:59)
[2017-03-29] MEDS: PANTOPRAZOLE SODIUM 40 MG TABLET.DR PO SCH (06:06)
[2017-03-29] MEDS: THYROID 60 MG TABLET PO SCH (06:06)
--- NOTE | 2017-03-29 06:37 | NUR ---
Patient resting in bed, no complaints of pain at this time. No acute distress noted. Needs attended. Due meds given. Xanax given last as ordered per patient's request. Kept in a comfortable. Safety precautions in place. Frequent checks done. Endorsed accordingly.
[2017-03-29 07:46] LABS: BASOPHILS % (AUTO) 0.4 % (0.0-2.0); EOSINOPHILS # (AUTO) 0.3 K/uL (0.0-0.7); EOSINOPHILS % (AUTO) 5.6 % (0.0-7.0); HEMATOCRIT 33.2 % (37-47); HEMOGLOBIN 10.9 G/DL (12.0-16.0); LYMPHOCYTES # (AUTO) 2.8 K/UL (0.8-4.8); LYMPHOCYTES % (AUTO) 44.2 % (20.5-51.5); MEAN CORPUSCULAR HEMOGLOBIN 26.1 UUG (27.0-31.0); MEAN CORPUSCULAR HGB CONC 33 g/dL (32.0-37.0); MEAN CORPUSCULAR VOLUME 79.8 FL (81.0-99.0); MONOCYTES # (AUTO) 0.6 K/UL (0.1-1.30); MONOCYTES % (AUTO) 9.7 % (0.0-11.0); NEUTROPHILS # (AUTO) 2.4 K/UL (1.8-8.9); NEUTROPHILS % (AUTO) 40.1 % (38.5-71.5); PLATELET COUNT (AUTO) 249 K/UL (150-450); RED BLOOD CELL COUNT(AUTO) 4.16 MIL/UL (4.2-5.4); WHITE BLOOD COUNT (AUTO) 6.1 K/UL (4.0-11.2)
[2017-03-29 08:00] VITALS: BP 106/56
[2017-03-29] MEDS: ENOXAPARIN SODIUM 30 MG/0.3 ML DISP.SYRIN SUBCUT SCH (08:12)
[2017-03-29] MEDS: predniSONE 2.5 MG TABLET PO SCH (08:13)
[2017-03-29] MEDS: ropiniROLE 1 MG TABLET PO SCH ×2 (08:13→17:21)
[2017-03-29] MEDS: DULOXETINE 60 MG CAPSULE.DR PO SCH (08:13)
[2017-03-29] MEDS: MULTIVIT, IRON, MIN NO. 8, FA TABLET PO SCH (08:13)
[2017-03-29] MEDS: FUROSEMIDE 20 MG TABLET PO SCH (08:13)
[2017-03-29] MEDS: GABAPENTIN 300 MG CAPSULE PO SCH ×3 (08:13→17:21)
[2017-03-29] MEDS: MONTELUKAST SODIUM 10 MG TABLET PO SCH (08:13)
[2017-03-29] MEDS: NICOTINE 14 MG/24HR PATCH TD SCH (08:13)
[2017-03-29] MEDS: FLUDROCORTISONE ACETATE 0.1 MG TABLET PO SCH (08:13)
[2017-03-29] MEDS: ASPIRIN EC 81 MG TABLET.DR PO SCH (08:13)
[2017-03-29 08:20] LABS: ALANINE AMINOTRANSFERASE 25 U/L (14-59); ALKALINE PHOSPHATASE 44 U/L (50-136); ASPARTATE AMINOTRANSFERASE 15 U/L (15-37); BILIRUBIN,TOTAL 0.4 mg/dL (0.2-1.0); CARBON DIOXIDE 32 mmol/L (21-32); CHLORIDE 103 mmol/L (98-107); CREATININE 0.9 mg/dL (0.6-1.3); GLUCOSE 73 mg/dL (74-106); MAGNESIUM 1.9 mg/dL (1.8-2.4); PHOSPHOROUS 4.1 mg/dL (2.5-4.9); TOTAL PROTEIN, SERUM 6.4 g/dL (6.4-8.2); UREA NITROGEN, BLOOD 27 mg/dL (7-18)
[2017-03-29] MEDS: FLUTICASONE/VILANTEROL 1 EACH BLST.W.DEV INH SCH (09:26)
[2017-03-29] MEDS: ALPRAZOLAM 0.25 MG TABLET PO PRN (13:24)
--- NOTE | 2017-03-29 17:56 | NUR ---
Resting with HOB up 30 degrees. Bed in low position, locked in placed. Denies any pain/discomfort at this time. No resp distress noted. All needs attended, made comfortable. Encouraged to call for any assistance, call light within reach. Will continue to monitor.
--- NOTE | 2017-03-29 19:30 | NUR ---
Patient resting on her bed. No s/s of distress. Respirations even and unlabored. Reminded to call for help whenever necessary. Call light within reach. Will continue to monitor.
[2017-03-29] MEDS: DOXEPIN 10 MG CAPSULE PO SCH (21:07)
[2017-03-29] MEDS: MAGNESIUM OXIDE 400 MG TABLET PO SCH (21:07)
[2017-03-29] MEDS: AZITHROMYCIN 250 MG TABLET PO SCH (21:07)
[2017-03-29] MEDS: ATORVASTATIN 10 MG TABLET PO SCH (21:07)
[2017-03-29] MEDS: DOCUSATE SODIUM 100 MG CAPSULE PO SCH (21:07)
[2017-03-29] MEDS: SENNOSIDES 1 TABLET PO SCH (21:07)
[2017-03-29 22:11] VITALS: BP 106/60
[2017-03-30] MEDS: ALPRAZOLAM 0.25 MG TABLET PO PRN ×3 (00:09→15:06)
[2017-03-30] MEDS: ALBUTEROL SULFATE 2.5 MG/3 ML NEBU NEB SCH ×4 (00:53→19:19)
[2017-03-30] MEDS: THYROID 60 MG TABLET PO SCH (06:27)
[2017-03-30] MEDS: PANTOPRAZOLE SODIUM 40 MG TABLET.DR PO SCH (06:28)
--- NOTE | 2017-03-30 06:56 | NUR ---
Patient went back to sleep after taking AM meds. No s/s of distress. No complaints of pain at this time. Slept well through the night. Due meds given. Needs attended. Comfort measures provided. Call light kept within reach. Safety precautions in place. Frequent checks done. Endorsed accordingly.
--- NOTE | 2017-03-30 08:05 | NUR ---
RECEIVED PATIENT AWAKE IN BED. ALERT ORIENTED X4. NO COMPLAINTS OF PAIN OR DISCOMFORT. NO S/S OF DISTRESS. CALL LIGHT WITHIN REACH.
[2017-03-30 08:19] VITALS: BP 106/60
[2017-03-30] MEDS: FLUTICASONE/VILANTEROL 1 EACH BLST.W.DEV INH SCH (08:32)
[2017-03-30] MEDS: DULOXETINE 60 MG CAPSULE.DR PO SCH (08:35)
[2017-03-30] MEDS: GABAPENTIN 300 MG CAPSULE PO SCH ×3 (08:35→16:59)
[2017-03-30] MEDS: NICOTINE 14 MG/24HR PATCH TD SCH (08:35)
[2017-03-30] MEDS: FLUDROCORTISONE ACETATE 0.1 MG TABLET PO SCH (08:35)
[2017-03-30] MEDS: ropiniROLE 1 MG TABLET PO SCH ×2 (08:35→16:58)
[2017-03-30] MEDS: ASPIRIN EC 81 MG TABLET.DR PO SCH (08:35)
[2017-03-30] MEDS: MONTELUKAST SODIUM 10 MG TABLET PO SCH (08:36)
[2017-03-30] MEDS: predniSONE 2.5 MG TABLET PO SCH (08:36)
[2017-03-30] MEDS: FUROSEMIDE 20 MG TABLET PO SCH (08:36)
[2017-03-30] MEDS: MULTIVIT, IRON, MIN NO. 8, FA TABLET PO SCH (08:36)
[2017-03-30] MEDS: ENOXAPARIN SODIUM 30 MG/0.3 ML DISP.SYRIN SUBCUT SCH (08:37)
--- NOTE | 2017-03-30 11:42 | NUR ---
PATIENT COMPLAINED OF PAIN OVER LEFT LOWER BACK AND HIP RATED 10/10. OXYIR PRN GIVEN. Addendum: 03/30/17 at 1144 by DEREK GUTIERREZ RN DOCUMENTED ON WRONG PATIENT. DOCUMENTATION FOR SULY COELLO
--- NOTE | 2017-03-30 14:27 | NUR ---
Rehab Team Conference Meeting 03/30/17
--- NOTE | 2017-03-30 15:05 | NUR ---
Patient feels agitated. Xanax PRN given
--- NOTE | 2017-03-30 17:00 | NUR ---
Patient resting well in bed. No complaints of discomfort at this time.
[2017-03-30] MEDS ORDERED: FUROSEMIDE 20 MG TABLET PO SCH (18:15)
--- NOTE | 2017-03-30 20:00 | NUR ---
PATIENT AWAKE IN BED. A/O X4. DENIES PAIN OR DISCOMFORT AT THIS TIME. BP 94/57. ALL OTHER VSS. NO RESP. DISTRESS NOTED. CALL LIGHT IN REACH. ALL NEEDS ATTENDED. WILL CONTINUE TO MONITOR.
[2017-03-30] MEDS: DOCUSATE SODIUM 100 MG CAPSULE PO SCH (20:37)
[2017-03-30] MEDS: DOXEPIN 10 MG CAPSULE PO SCH (20:37)
[2017-03-30] MEDS: SENNOSIDES 1 TABLET PO SCH (20:37)
[2017-03-30] MEDS: MAGNESIUM OXIDE 400 MG TABLET PO SCH (20:37)
[2017-03-30] MEDS: AZITHROMYCIN 250 MG TABLET PO SCH (20:37)
[2017-03-30] MEDS: ATORVASTATIN 10 MG TABLET PO SCH (20:37)
[2017-03-30 20:51] VITALS: BP 94/57
--- NOTE | 2017-03-30 22:00 | NUR ---
PATIENT AWAKE IN BED. ASKING FOR HER PRN XANAX. RECHECKED BLOOD PRESSURE AND RECEIVED 78/42. ALL OTHER VSS. PATIENT IS ASYMPTOMATIC. PATIENT VERBALIZED UNDERSTANDING OF WHY XANAX CAN NOT BE ADMINISTERED AT THIS TIME. CALLED OUT TO DR. KRISTEN CONKLIN FOR FURTHER ORDERS. WILL CONTINUE TO MONITOR AND ASSESS.
--- NOTE | 2017-03-30 22:15 | NUR ---
NOTIFIED. NO NEW ORDERS AT THIS TIME. WILL CONTINUE TO MONITOR.
--- NOTE | 2017-03-31 | NUR ---
PATIENT AWAKE IN BED, WATCHING TV. RECHECKED PATIENTS BLOOD PRESSURE. RECEIVED 98/61. ALL OTHER VSS. PATIENT REQUESTING FOR TYLENOL. PATIENT GIVEN 650MG PO PRN. CALL LIGHT IN REACH. BED ALARM ON. WILL CONTINUE TO MONITOR AND ASSESS.
[2017-03-31] MEDS: ACETAMINOPHEN 325 MG TABLET PO PRN (00:07)
[2017-03-31] MEDS: ALBUTEROL SULFATE 2.5 MG/3 ML NEBU NEB SCH ×4 (00:38→19:26)
[2017-03-31] MEDS: THYROID 60 MG TABLET PO SCH (06:14)
[2017-03-31] MEDS: PANTOPRAZOLE SODIUM 40 MG TABLET.DR PO SCH (06:14)
[2017-03-31] MEDS: ALPRAZOLAM 0.25 MG TABLET PO PRN ×3 (06:15→23:38)
--- NOTE | 2017-03-31 06:16 | NUR ---
PATIENT RESTING IN BED. ASKING FOR XANAX FOR ANXIETY. RECHECKED PATIENTS BP 121/64. ALL OTHER VSS. PATIENT GIVEN XANAX 0.25MG PO PRN ORDERED FOR ANXIETY. CALL LIGHT IN REACH. ALL NEEDS ATTENDED. WILL CONTINUE TO MONITOR.
[2017-03-31 08:01] VITALS: BP 115/62
[2017-03-31] MEDS: DULOXETINE 60 MG CAPSULE.DR PO SCH (08:38)
[2017-03-31] MEDS: FLUTICASONE/VILANTEROL 1 EACH BLST.W.DEV INH SCH (08:38)
[2017-03-31] MEDS: FLUDROCORTISONE ACETATE 0.1 MG TABLET PO SCH (08:39)
[2017-03-31] MEDS: GABAPENTIN 300 MG CAPSULE PO SCH ×3 (08:39→17:28)
[2017-03-31] MEDS: predniSONE 2.5 MG TABLET PO SCH (08:39)
[2017-03-31] MEDS: MULTIVIT, IRON, MIN NO. 8, FA TABLET PO SCH (08:39)
[2017-03-31] MEDS: MONTELUKAST SODIUM 10 MG TABLET PO SCH (08:39)
[2017-03-31] MEDS: FUROSEMIDE 40 MG TABLET PO SCH (08:39)
[2017-03-31] MEDS: ropiniROLE 1 MG TABLET PO SCH ×2 (08:39→17:29)
[2017-03-31] MEDS: ASPIRIN EC 81 MG TABLET.DR PO SCH (08:39)
[2017-03-31] MEDS: ENOXAPARIN SODIUM 30 MG/0.3 ML DISP.SYRIN SUBCUT SCH (08:42)
[2017-03-31] MEDS: NICOTINE 14 MG/24HR PATCH TD SCH (08:42)
--- NOTE | 2017-03-31 08:45 | NUR ---
RECEIVED PATIENT AWAKE IN BED. NO S/S OF DISTRESS. NO COMPLAINTS OF PAIN/ DISCOMFORT. O2 AT 2 LPM, O2 SAT AT 96%. TOLERATED BREAKFAST WELL. CALL LIGHT WITHIN REACH. WILL CONTINUE TO MONITOR
[2017-03-31 09:31] LABS: ABG BASE EXCESS 3.4 mmol/L; ABG HCO3 27.8 mmol/L; ABG PCO2 41.6 mmHg (35.0-45.0); ABG PH 7.443 (7.350-7.450); ABG PO2 76.5 mmHg (75.0-100.0); ABG SITE RIGHT RADIAL; ABG TOTAL HEMOGLOBIN 12.3 G/dL (12.0-16.0); COHb 1.4 % (0.5-1.5); MetHb 0.3 % (0.0-1.5); O2Hb 93.1 % (94.0-97.0); VENT MODE room air
--- NOTE | 2017-03-31 13:07 | NUR ---
PATIENT IS ANXIOUS. NO SOB. O2 SAT AT 94% AT ROOM AIR. BP AT 118/73. PRN XANAX GIVEN.
--- NOTE | 2017-03-31 18:12 | NUR ---
Patient resting in bed comfortably. BP at 132/77 NM- 72. O2 sat at 96% at room air for about 1 hr. No shortness of breath. Breathing is non-labored. RR-20
--- NOTE | 2017-03-31 19:00 | NUR ---
PATIENT ALERT ORIENTED, NO SOB NO CHEST PAIN NOTED, AMBULATE IN THE HALLWAYS, CONT TO MONITOR.
[2017-03-31 20:00] VITALS: BP 102/58
[2017-03-31] MEDS: DOXEPIN 10 MG CAPSULE PO SCH (21:00)
[2017-03-31] MEDS: AZITHROMYCIN 250 MG TABLET PO SCH (21:10)
[2017-03-31] MEDS: SENNOSIDES 1 TABLET PO SCH (21:10)
[2017-03-31] MEDS: MAGNESIUM OXIDE 400 MG TABLET PO SCH (21:10)
[2017-03-31] MEDS: DOCUSATE SODIUM 100 MG CAPSULE PO SCH (21:10)
[2017-03-31] MEDS: ATORVASTATIN 10 MG TABLET PO SCH (21:10)
[2017-04-01] MEDS: ALBUTEROL SULFATE 2.5 MG/3 ML NEBU NEB SCH ×4 (01:42→19:04)
--- NOTE | 2017-04-01 05:04 | NUR ---
PATIENT SLEPT MOST OF THE NIGHT NO SOB NO CHEST PAIN NOTED, CALL LIGHT WITHIN REACH. NO COMPLAIN OF PAIN NOR DISCOMFORT, XANAX EFFECTIVE, HELPS PATIENT SLEEP AT NIGHT, AND RELIEVES ANXIETY, CONT TO MONITOR.
[2017-04-01] MEDS: PANTOPRAZOLE SODIUM 40 MG TABLET.DR PO SCH (06:22)
[2017-04-01] MEDS: ALPRAZOLAM 0.25 MG TABLET PO PRN ×3 (06:22→19:58)
[2017-04-01] MEDS: THYROID 60 MG TABLET PO SCH (06:38)
[2017-04-01 08:27] VITALS: BP 114/57
[2017-04-01] MEDS: NICOTINE 14 MG/24HR PATCH TD SCH (08:35)
[2017-04-01] MEDS: MONTELUKAST SODIUM 10 MG TABLET PO SCH (08:36)
[2017-04-01] MEDS: FUROSEMIDE 40 MG TABLET PO SCH (08:36)
[2017-04-01] MEDS: predniSONE 2.5 MG TABLET PO SCH (08:36)
[2017-04-01] MEDS: ASPIRIN EC 81 MG TABLET.DR PO SCH (08:36)
[2017-04-01] MEDS: FLUDROCORTISONE ACETATE 0.1 MG TABLET PO SCH (08:36)
[2017-04-01] MEDS: GABAPENTIN 300 MG CAPSULE PO SCH ×3 (08:36→16:51)
[2017-04-01] MEDS: DULOXETINE 60 MG CAPSULE.DR PO SCH (08:36)
[2017-04-01] MEDS: MULTIVIT, IRON, MIN NO. 8, FA TABLET PO SCH (08:36)
[2017-04-01] MEDS: ropiniROLE 1 MG TABLET PO SCH ×2 (08:36→16:52)
[2017-04-01] MEDS: ENOXAPARIN SODIUM 30 MG/0.3 ML DISP.SYRIN SUBCUT SCH (08:45)
[2017-04-01] MEDS: FLUTICASONE/VILANTEROL 1 EACH BLST.W.DEV INH SCH (08:45)
[2017-04-01] MEDS: ACETAMINOPHEN 325 MG TABLET PO PRN (14:45)
--- NOTE | 2017-04-01 19:04 | NUR ---
Patient had a good day took all medications and worked with PT Ot. Had prn tylenol and xanax.
[2017-04-01] MEDS: MAGNESIUM OXIDE 400 MG TABLET PO SCH (20:48)
[2017-04-01] MEDS: SENNOSIDES 1 TABLET PO SCH (20:48)
[2017-04-01] MEDS: DOXEPIN 10 MG CAPSULE PO SCH ×2 (20:48→21:00)
[2017-04-01] MEDS: DOCUSATE SODIUM 100 MG CAPSULE PO SCH (20:48)
[2017-04-01] MEDS: ATORVASTATIN 10 MG TABLET PO SCH (20:48)
[2017-04-01 20:49] VITALS: BP 94/53
[2017-04-01] MEDS: AZITHROMYCIN 250 MG TABLET PO SCH (20:50)
[2017-04-02] MEDS: ALBUTEROL SULFATE 2.5 MG/3 ML NEBU NEB SCH ×4 (00:54→18:33)
[2017-04-02] MEDS: ALPRAZOLAM 0.25 MG TABLET PO PRN ×4 (05:08→23:52)
--- NOTE | 2017-04-02 06:10 | NUR ---
PT SLEPT WELL OVERNIGHT, HAD X2 DOSES OF XANAX FOR ANXIETY, DENIES ANY PAIN OR DISCOMFORT,NO SOB,VSS,AFEBRILE, KEPT CLEAN AND DRY,NO BM.
[2017-04-02] MEDS: PANTOPRAZOLE SODIUM 40 MG TABLET.DR PO SCH (06:31)
[2017-04-02] MEDS: THYROID 60 MG TABLET PO SCH (06:31)
--- NOTE | 2017-04-02 07:15 | NUR ---
REC'S BEDSIDE SBAR REPORT, PT AWAKE, NO DISTRESS NOTED.
[2017-04-02] MEDS: FLUTICASONE/VILANTEROL 1 EACH BLST.W.DEV INH SCH (09:14)
[2017-04-02] MEDS: MONTELUKAST SODIUM 10 MG TABLET PO SCH (09:15)
[2017-04-02] MEDS: predniSONE 2.5 MG TABLET PO SCH (09:15)
[2017-04-02] MEDS: DULOXETINE 60 MG CAPSULE.DR PO SCH (09:15)
[2017-04-02] MEDS: FUROSEMIDE 40 MG TABLET PO SCH (09:15)
[2017-04-02] MEDS: NICOTINE 14 MG/24HR PATCH TD SCH (09:15)
[2017-04-02] MEDS: MULTIVIT, IRON, MIN NO. 8, FA TABLET PO SCH (09:15)
[2017-04-02] MEDS: ASPIRIN EC 81 MG TABLET.DR PO SCH (09:15)
[2017-04-02] MEDS: ropiniROLE 1 MG TABLET PO SCH ×2 (09:15→17:10)
[2017-04-02] MEDS: GABAPENTIN 300 MG CAPSULE PO SCH ×3 (09:15→17:11)
[2017-04-02] MEDS: FLUDROCORTISONE ACETATE 0.1 MG TABLET PO SCH (09:15)
[2017-04-02] MEDS: ENOXAPARIN SODIUM 30 MG/0.3 ML DISP.SYRIN SUBCUT SCH (09:21)
[2017-04-02 11:25] VITALS: BP 117/64
[2017-04-02 18:50] VITALS: BP 115/59
--- NOTE | 2017-04-02 19:16 | NUR ---
sbar bedside reportgiven to meet aguilar. pt resting no distress noted
[2017-04-02 20:07] VITALS: BP 100/50
[2017-04-02] MEDS: SENNOSIDES 1 TABLET PO SCH (20:31)
[2017-04-02] MEDS: AZITHROMYCIN 250 MG TABLET PO SCH (20:31)
[2017-04-02] MEDS: ATORVASTATIN 10 MG TABLET PO SCH (20:31)
[2017-04-02] MEDS: DOCUSATE SODIUM 100 MG CAPSULE PO SCH ×2 (20:31→20:34)
[2017-04-02] MEDS: MAGNESIUM OXIDE 400 MG TABLET PO SCH (20:31)
[2017-04-02] MEDS: DOXEPIN 10 MG CAPSULE PO SCH (20:44)
[2017-04-03] MEDS: ALBUTEROL SULFATE 2.5 MG/3 ML NEBU NEB SCH ×4 (00:52→19:05)
[2017-04-03] MEDS: PANTOPRAZOLE SODIUM 40 MG TABLET.DR PO SCH (06:02)
[2017-04-03] MEDS: THYROID 60 MG TABLET PO SCH (06:02)
[2017-04-03] MEDS: ALPRAZOLAM 0.25 MG TABLET PO PRN ×3 (06:04→20:07)
[2017-04-03 08:00] VITALS: BP 106/56
[2017-04-03] MEDS: NICOTINE 14 MG/24HR PATCH TD SCH (09:03)
[2017-04-03] MEDS: FLUTICASONE/VILANTEROL 1 EACH BLST.W.DEV INH SCH (09:03)
[2017-04-03] MEDS: predniSONE 2.5 MG TABLET PO SCH (09:04)
[2017-04-03] MEDS: ACETAMINOPHEN 325 MG TABLET PO PRN ×3 (09:04→20:50)
[2017-04-03] MEDS: ropiniROLE 1 MG TABLET PO SCH ×2 (09:04→17:26)
[2017-04-03] MEDS: MULTIVIT, IRON, MIN NO. 8, FA TABLET PO SCH (09:04)
[2017-04-03] MEDS: FLUDROCORTISONE ACETATE 0.1 MG TABLET PO SCH (09:04)
[2017-04-03] MEDS: MONTELUKAST SODIUM 10 MG TABLET PO SCH (09:04)
[2017-04-03] MEDS: DULOXETINE 60 MG CAPSULE.DR PO SCH (09:04)
[2017-04-03] MEDS: ASPIRIN EC 81 MG TABLET.DR PO SCH (09:04)
[2017-04-03] MEDS: GABAPENTIN 300 MG CAPSULE PO SCH ×3 (09:04→17:25)
[2017-04-03] MEDS: FUROSEMIDE 40 MG TABLET PO SCH (09:04)
[2017-04-03] MEDS: ENOXAPARIN SODIUM 30 MG/0.3 ML DISP.SYRIN SUBCUT SCH (09:09)
--- NOTE | 2017-04-03 15:20 | NUR ---
DR hooper was called for patient. patient stated she was having a sore throat. Waiting on to return call.
--- NOTE | 2017-04-03 18:09 | NUR ---
Patient had a good day today. Worked with PT and OT. Received PRN tylenol for sore throat. Still waiting for daughter call back. Patient stated tylenol did help. PRN xanax was given during the shift.
[2017-04-03] MEDS: DOCUSATE SODIUM 100 MG CAPSULE PO SCH (19:53)
[2017-04-03] MEDS: DOXEPIN 10 MG CAPSULE PO SCH (19:54)
[2017-04-03] MEDS: MAGNESIUM OXIDE 400 MG TABLET PO SCH (20:07)
[2017-04-03] MEDS: ATORVASTATIN 10 MG TABLET PO SCH (20:07)
[2017-04-03] MEDS: AZITHROMYCIN 250 MG TABLET PO SCH (20:07)
[2017-04-03] MEDS: SENNOSIDES 1 TABLET PO SCH (20:07)
[2017-04-03 20:19] VITALS: BP 95/50
[2017-04-03] MEDS ORDERED: BENZOCAINE/MENTH/CETYLPYRD LOZENGE MM PRN (23:30)
[2017-04-04] MEDS: ALBUTEROL SULFATE 2.5 MG/3 ML NEBU NEB SCH ×4 (01:41→19:06)
[2017-04-04] MEDS: ALPRAZOLAM 0.25 MG TABLET PO PRN ×4 (04:04→22:45)
[2017-04-04] MEDS: THYROID 60 MG TABLET PO SCH (06:20)
[2017-04-04] MEDS: PANTOPRAZOLE SODIUM 40 MG TABLET.DR PO SCH (06:20)
--- NOTE | 2017-04-04 06:45 | NUR ---
pt slept well overnight,no significant changes.kept clean and dry,call light at reached.
--- NOTE | 2017-04-04 07:19 | NUR ---
rec 'd bedside sbar report, pt sleeping, no distress noted
[2017-04-04 07:30] VITALS: BP 118/62
[2017-04-04 07:44] VITALS: BP 104/54
[2017-04-04] MEDS: FLUDROCORTISONE ACETATE 0.1 MG TABLET PO SCH (08:18)
[2017-04-04] MEDS: NICOTINE 14 MG/24HR PATCH TD SCH (08:18)
[2017-04-04] MEDS: FLUTICASONE/VILANTEROL 1 EACH BLST.W.DEV INH SCH (08:18)
[2017-04-04] MEDS: MULTIVIT, IRON, MIN NO. 8, FA TABLET PO SCH (08:18)
[2017-04-04] MEDS: ropiniROLE 1 MG TABLET PO SCH ×2 (08:19→16:45)
[2017-04-04] MEDS: DULOXETINE 60 MG CAPSULE.DR PO SCH (08:19)
[2017-04-04] MEDS: MONTELUKAST SODIUM 10 MG TABLET PO SCH (08:19)
[2017-04-04] MEDS: GABAPENTIN 300 MG CAPSULE PO SCH ×3 (08:19→16:45)
[2017-04-04] MEDS: predniSONE 2.5 MG TABLET PO SCH (08:20)
[2017-04-04] MEDS: ASPIRIN EC 81 MG TABLET.DR PO SCH (08:20)
[2017-04-04] MEDS: FUROSEMIDE 40 MG TABLET PO SCH (08:20)
[2017-04-04] MEDS: ENOXAPARIN SODIUM 30 MG/0.3 ML DISP.SYRIN SUBCUT SCH (09:09)
--- NOTE | 2017-04-04 16:10 | NUR ---
BORIS FROM [facility] CALLED STAING THEY NEEDED USE TO FAX THEM PROGRESS NOTES AND H/P FOR PLACING OXYGEN ORDERS FOR PT. PT PRESENTLY ON ROOMAIR AND SATURATING AT 92%, AND DOES NOT USE MAINTANANCE OXYGEN. ISSUE ADDRESSED TO MONI THE [employer]GE[employer], WHOM THEN FAXED TO [phone] FORM STATING THAT MAINTENANCE OXYGEN WAS NOT USED/NEEDED.
--- NOTE | 2017-04-04 19:05 | NUR ---
BNEDSIDE SBAR REPORT GIVEN TO PM SHIFT RN. PT PROGRESSING TOWARDS GOALS, USING WALKER AND AMBULATING. CONTINUE PLAN OF CARE.
[2017-04-04 20:17] VITALS: BP 107/56
[2017-04-04] MEDS: DOCUSATE SODIUM 100 MG CAPSULE PO SCH (20:34)
[2017-04-04] MEDS: MAGNESIUM OXIDE 400 MG TABLET PO SCH (20:37)
[2017-04-04] MEDS: SENNOSIDES 1 TABLET PO SCH (20:38)
[2017-04-04] MEDS: AZITHROMYCIN 250 MG TABLET PO SCH (20:38)
[2017-04-04] MEDS: ATORVASTATIN 10 MG TABLET PO SCH (20:38)
[2017-04-04] MEDS: DOXEPIN 10 MG CAPSULE PO SCH (21:00)
[2017-04-05] MEDS: ALBUTEROL SULFATE 2.5 MG/3 ML NEBU NEB SCH ×4 (01:00→19:07)
[2017-04-05] MEDS: ACETAMINOPHEN 325 MG TABLET PO PRN ×2 (01:52→08:16)
[2017-04-05] MEDS: ALPRAZOLAM 0.25 MG TABLET PO PRN ×3 (05:33→19:01)
[2017-04-05] MEDS: THYROID 60 MG TABLET PO SCH (06:51)
[2017-04-05] MEDS: PANTOPRAZOLE SODIUM 40 MG TABLET.DR PO SCH (06:51)
[2017-04-05 08:00] VITALS: BP 117/66
[2017-04-05] MEDS: FLUTICASONE/VILANTEROL 1 EACH BLST.W.DEV INH SCH (08:03)
[2017-04-05] MEDS: NICOTINE 14 MG/24HR PATCH TD SCH (08:04)
[2017-04-05] MEDS: ENOXAPARIN SODIUM 30 MG/0.3 ML DISP.SYRIN SUBCUT SCH (08:04)
[2017-04-05] MEDS: predniSONE 2.5 MG TABLET PO SCH (08:05)
[2017-04-05] MEDS: MONTELUKAST SODIUM 10 MG TABLET PO SCH (08:05)
[2017-04-05] MEDS: MULTIVIT, IRON, MIN NO. 8, FA TABLET PO SCH (08:05)
[2017-04-05] MEDS: FLUDROCORTISONE ACETATE 0.1 MG TABLET PO SCH (08:05)
[2017-04-05] MEDS: ropiniROLE 1 MG TABLET PO SCH ×2 (08:05→17:07)
[2017-04-05] MEDS: FUROSEMIDE 40 MG TABLET PO SCH (08:05)
[2017-04-05] MEDS: ASPIRIN EC 81 MG TABLET.DR PO SCH (08:05)
[2017-04-05] MEDS: GABAPENTIN 300 MG CAPSULE PO SCH ×3 (08:05→17:07)
[2017-04-05] MEDS: DULOXETINE 60 MG CAPSULE.DR PO SCH (08:07)
--- NOTE | 2017-04-05 08:15 | NUR ---
Patient awake in bed. Receiving breathing treatment. No s/s of distress. Alert and oriented x4. Complained of headache rated as 6/10. Tylenol PRN given. Call light within reach
--- NOTE | 2017-04-05 09:30 | NUR ---
O2 sat at 95% in room air. Not in any form of distress. No shortness of breath noted. Head ache relieved.
--- NOTE | 2017-04-05 12:15 | NUR ---
PATIENT IS ANXIOUS AND WANTS TO GO OUT AND SMOKE. XANAX PRN GIVEN. PATIENT INSISTED ON WANTING TO GO OUT AND SMOKE. INFORMED DR. TORRES OF PATIENT'S REQUEST ALLOWED SMOKING FOR JUST 1X TODAY.
--- NOTE | 2017-04-05 19:00 | NUR ---
PATIENT IS ANXIOUS, AND SAID " I WANT MY XANAX." PRN XANAX GIVEN. BP 112/ 58.
--- NOTE | 2017-04-05 19:30 | NUR ---
PT ALERT AND ORIENTED IN BED. NO DISTRESS NOTED. O2 SAT WNL ON ROOM AIR. COMPLIANT WITH NURSING CARE. BED IN LOW, LOCKED POSITION, ALARM ON. CLEAN AND DRY. SAFETY MAINTAINED. CALL LIGHT WITHIN REACH.
[2017-04-05] MEDS: AZITHROMYCIN 250 MG TABLET PO SCH (20:01)
[2017-04-05] MEDS: MAGNESIUM OXIDE 400 MG TABLET PO SCH (20:01)
[2017-04-05] MEDS: DOCUSATE SODIUM 100 MG CAPSULE PO SCH (20:01)
[2017-04-05] MEDS: SENNOSIDES 1 TABLET PO SCH (20:02)
[2017-04-05] MEDS: ATORVASTATIN 10 MG TABLET PO SCH (20:02)
[2017-04-05] MEDS: DOXEPIN 10 MG CAPSULE PO SCH (20:03)
[2017-04-05 20:13] VITALS: BP 96/53
[2017-04-06] MEDS: ALBUTEROL SULFATE 2.5 MG/3 ML NEBU NEB SCH ×4 (01:06→19:03)
[2017-04-06] MEDS: ALPRAZOLAM 0.25 MG TABLET PO PRN ×3 (01:18→20:33)
[2017-04-06] MEDS: PANTOPRAZOLE SODIUM 40 MG TABLET.DR PO SCH (06:07)
[2017-04-06] MEDS: THYROID 60 MG TABLET PO SCH (06:07)
--- NOTE | 2017-04-06 07:00 | NUR ---
PT RESTING IN BED. NO DISTRESS NOTED. NO SIGNIFICANT EVENTS THROUGHOUT THE NIGHT. CLEAN AND DRY. SAFETY MAINTAINED. CALL LIGHT WITHIN REACH.
--- NOTE | 2017-04-06 08:05 | NUR ---
RECEIVED PATIENT AWAKE IN BED. EATING BREAKFAST. NOT IN ANY FORM OF DISTRESS. NO COMPLAINTS OF PAIN OR SOB. O2 SAT AT 95% IN ROOM AIR.
[2017-04-06] MEDS: FUROSEMIDE 40 MG TABLET PO SCH (08:16)
[2017-04-06] MEDS: predniSONE 2.5 MG TABLET PO SCH (08:16)
[2017-04-06] MEDS: MULTIVIT, IRON, MIN NO. 8, FA TABLET PO SCH (08:16)
[2017-04-06] MEDS: MONTELUKAST SODIUM 10 MG TABLET PO SCH (08:16)
[2017-04-06] MEDS: DULOXETINE 60 MG CAPSULE.DR PO SCH (08:16)
[2017-04-06] MEDS: ASPIRIN EC 81 MG TABLET.DR PO SCH (08:16)
[2017-04-06] MEDS: FLUDROCORTISONE ACETATE 0.1 MG TABLET PO SCH (08:16)
[2017-04-06] MEDS: ropiniROLE 1 MG TABLET PO SCH ×2 (08:17→17:14)
[2017-04-06] MEDS: NICOTINE 14 MG/24HR PATCH TD SCH (08:17)
[2017-04-06] MEDS: GABAPENTIN 300 MG CAPSULE PO SCH ×3 (08:17→17:14)
[2017-04-06] MEDS: ENOXAPARIN SODIUM 30 MG/0.3 ML DISP.SYRIN SUBCUT SCH (08:20)
[2017-04-06] MEDS: FLUTICASONE/VILANTEROL 1 EACH BLST.W.DEV INH SCH (08:24)
[2017-04-06 08:43] VITALS: BP 115/65
[2017-04-06] MEDS: ACETAMINOPHEN 325 MG TABLET PO PRN ×2 (10:09)
--- NOTE | 2017-04-06 10:15 | NUR ---
Patient complained of headache BP 117/66., no SOB. Head ache rated as 5/10. Tylenol PRN given. O2 Sat at 94% in RA.
--- NOTE | 2017-04-06 15:00 | NUR ---
Patient agitated and requested for Xanax. PRN Xanax given.
--- NOTE | 2017-04-06 15:18 | NUR ---
REHAB TEAM CONFERENCE MEETING 04/06/17
[2017-04-06] MEDS: DOCUSATE SODIUM 100 MG CAPSULE PO SCH (20:14)
[2017-04-06 20:21] VITALS: BP 104/57
[2017-04-06] MEDS: SENNOSIDES 1 TABLET PO SCH (20:33)
[2017-04-06] MEDS: MAGNESIUM OXIDE 400 MG TABLET PO SCH (20:33)
[2017-04-06] MEDS: AZITHROMYCIN 250 MG TABLET PO SCH (20:33)
[2017-04-06] MEDS: ATORVASTATIN 10 MG TABLET PO SCH (20:33)
[2017-04-06] MEDS: DOXEPIN 10 MG CAPSULE PO SCH (20:34)
[2017-04-07] MEDS: ALBUTEROL SULFATE 2.5 MG/3 ML NEBU NEB SCH ×3 (01:37→13:28)
[2017-04-07] MEDS: ZOLPIDEM 5 MG TABLET PO PRN ×2 (02:37→02:39)
[2017-04-07] MEDS: ACETAMINOPHEN 325 MG TABLET PO PRN (02:40)
[2017-04-07] MEDS: PANTOPRAZOLE SODIUM 40 MG TABLET.DR PO SCH (06:00)
[2017-04-07] MEDS: ALPRAZOLAM 0.25 MG TABLET PO PRN ×2 (06:00→15:03)
[2017-04-07] MEDS: THYROID 60 MG TABLET PO SCH (06:00)
--- NOTE | 2017-04-07 06:27 | NUR ---
no significant changes, continue to get her xanax ,tylenol for headache and sleeping pill. uses diaper at n ight, no bm. all needs attended,call light at reached.
[2017-04-07 07:48] VITALS: BP 100/51
[2017-04-07] MEDS: ASPIRIN EC 81 MG TABLET.DR PO SCH (08:21)
[2017-04-07] MEDS: FLUDROCORTISONE ACETATE 0.1 MG TABLET PO SCH (08:21)
[2017-04-07] MEDS: MULTIVIT, IRON, MIN NO. 8, FA TABLET PO SCH (08:21)
[2017-04-07] MEDS: MONTELUKAST SODIUM 10 MG TABLET PO SCH (08:22)
[2017-04-07] MEDS: GABAPENTIN 300 MG CAPSULE PO SCH ×3 (08:22→16:11)
[2017-04-07] MEDS: DULOXETINE 60 MG CAPSULE.DR PO SCH (08:22)
[2017-04-07] MEDS: predniSONE 2.5 MG TABLET PO SCH (08:22)
[2017-04-07] MEDS: ropiniROLE 1 MG TABLET PO SCH ×2 (08:22→16:11)
[2017-04-07] MEDS: FUROSEMIDE 40 MG TABLET PO SCH (08:22)
[2017-04-07] MEDS: FLUTICASONE/VILANTEROL 1 EACH BLST.W.DEV INH SCH (08:23)
[2017-04-07] MEDS: NICOTINE 14 MG/24HR PATCH TD SCH (08:24)
[2017-04-07] MEDS: ENOXAPARIN SODIUM 30 MG/0.3 ML DISP.SYRIN SUBCUT SCH (08:25)
--- NOTE | 2017-04-07 18:24 | NUR ---
pt discharged at 1830. pt had no signs of complications. vs stable. pt instructed to follow up with home health and pharmacy for medications. pt given discharge instructions and presciption faxed to pharmacy. pt valuables checked with belongings list. pt signed discharge instructions and valuables list. pt education with smoking cessation, vte and dash diet. pt left with gina on a private car. pt used wheelchair to be discharged.
== END 2017-04-07 18:30 | disposition home health service (06) | DRG 292 ==
PROVIDERS: ADMIT Internal Medicine; ATTEND Physical Medicine & Rehabilitation Pain Medicine
DX: I11.0 Hypertensive heart disease with heart failure (principal); K51.90 Ulcerative colitis, unspecified, without complications; D68.59 Other primary thrombophilia; J44.1 Chronic obstructive pulmonary disease with (acute) exacerbation; I50.32 Chronic diastolic (congestive) heart failure; E66.9 Obesity, unspecified; F17.210 Nicotine dependence, cigarettes, uncomplicated; F41.9 Anxiety disorder, unspecified; G25.81 Restless legs syndrome; G89.29 Other chronic pain; I70.0 Atherosclerosis of aorta; K21.9 Gastro-esophageal reflux disease without esophagitis; M47.814 Spondylosis without myelopathy or radiculopathy, thoracic region; M79.7 Fibromyalgia; N28.1 Cyst of kidney, acquired; R29.6 Repeated falls; Z88.1 Allergy status to other antibiotic agents; Z90.49 Acquired absence of other specified parts of digestive tract; Z90.710 Acquired absence of both cervix and uterus; E03.9 Hypothyroidism, unspecified; D50.9 Iron deficiency anemia, unspecified; R19.5 Other fecal abnormalities; E78.5 Hyperlipidemia, unspecified; G47.00 Insomnia, unspecified; M19.90 Unspecified osteoarthritis, unspecified site; M54.16 Radiculopathy, lumbar region; Z87.01 Personal history of pneumonia (recurrent); G62.9 Polyneuropathy, unspecified; R09.89 Other specified symptoms and signs involving the circulatory and respiratory systems; R20.0 Anesthesia of skin; R53.1 Weakness; M80.08XS Age-related osteoporosis with current pathological fracture, vertebra(e), sequela; D50.0 Iron deficiency anemia secondary to blood loss (chronic)
CPT/HCPCS: 36415; 36600; 71010; 83735; 84100; 85025; 94640; 94664; 97110; 97112; 97116; 97165; 97530; 97535; A4663; J1650; J2920; J7512; Q0144